=== PATIENT | male | born 1975 | race Caucasian/White ===

== ENCOUNTER 2017-03-25 13:04 | Emergency (ER) | payer BC ==
[2017-03-25 13:14] VITALS: BP 123/84
--- NOTE | 2017-03-25 16:15 | Emergency Department Report ---
[facility] Chief Complaint: Eye Problems Stated Complaint: LEFT EYE CYST Time Seen by Provider: 03/25/17 15:54 Duration: 7 months Side: Left (left eye brow cyst ) Severity: mild Symptoms: Yes Eye Itching, Yes Eye Redness, Yes Mucous Drainage, Yes Purulent Drainage, No Eye Pain, No Blurred Vision, No Preceding URI, No H/O Allergic Rhinitis, No Contact Lens Use, No Trauma, No Fever, No Headache ED Review of Systems ROS: Stated complaint: LEFT EYE CYST Other details as noted in HPI Constitutional: denies: chills, fever Eyes: eye discharge. denies: vision change ENT: denies: ear pain, throat pain Respiratory: denies: cough, shortness of breath, wheezing Cardiovascular: denies: chest pain, palpitations Endocrine: no symptoms reported Gastrointestinal: denies: abdominal pain, nausea, diarrhea Genitourinary: denies: urgency, dysuria Musculoskeletal: denies: back pain, joint swelling, arthralgia Skin: denies: rash, lesions Neurological: denies: headache, weakness, paresthesias Psychiatric: denies: anxiety, depression Hematological/Lymphatic: denies: easy bleeding, easy bruising ED Past Medical Hx - Past Medical History Previous Medical History?: No - Surgical History Past Surgical History?: No - Social History Smoking Status: Current Every Day Smoker Substance Use Type: Alcohol - Medications Home Medications: Home Medications Medication Instructions Recorded Confirmed Last Taken Type Amoxicillin/K Clav Tab [Augmentin 1 tab PO Q12HR #20 tab 03/25/17 Unknown Rx 875 mg] Ibuprofen [Motrin 800 MG tab] 800 mg PO Q8HR PRN #30 tablet 03/25/17 Unknown Rx Ofloxacin 1 drop OP Q3H #1 bottle 03/25/17 Unknown Rx Oxymetazoline 0.05% [Afrin] 1 spray NS BID #1 bottle 03/25/17 Unknown Rx [facility] Exam - Exam General: Vital signs noted. No distress. Alert and acting appropriately. Eye Exam: Left Mucous Discharge, Left Purulent Discharge, Both Injection, Both EOMI, Neither Chemosis, Neither Abnormal Pupil, Neither Eye Foreign Body, Neither Lid Foreign Body, Neither Photophobia HEENT: Yes Nasal Congestion (yellow /clear post nasal drip turbinate erythema mild bilat maxillary tenderness ), Yes Pharyngeal Erythema (no exudate no lesions no edema uvula midline no stridor ) Remainder of HEENT: Normal Lungs: Yes Clear Lung Sounds, Yes Good Air Exchange, Yes Cough (intermittent clear ), No Wheezes, No Stridor, No Nasal Flaring, No Retractions, No Use of Accessory Muscles ED Course Vital Signs 03/25/17 13:10 Temperature 99 F Pulse Rate 115 H Respiratory 18 Rate Blood Pressure 123/84 O2 Sat by Pulse 100 Oximetry ED Medical Decision Making - Medical Decision Making pt is a 41 y/o aam with hx seasonal allergies initially presented for left eyebrow cyst x 7 months with bilat purulent eye drainage x 2 weeks pt is perrla eomi conjunctivae erythema purulent drainage and itching no change in vision visual aquitty 20/13 left, 20/15 right, and 20/20 bilat there is no blurred vision eye lids inverted and swept bilat no foreign bodies no foreignbody sensation, secondary complaint head congestion, ENT: bilat TM erythema mild pain , nose: bilat turbinate erythema no yellow/clear boggy post nasal drip, pharynx: moderate erythema no exudate no lesions no swelling uvula midline no stridor, lungs clear bilat all lobes, cv: s1 and s2 no mrg, pt with mild tachycardia this visit, pt endorses no sleep working on 28 hrs , no food no drink , "Im tired for this cold" plan: NS x 1 liter, po given lunch tolerating same without n/v there is no headache no dizziness no lightheadeness no fever no chills, will treat for conjunctivitis, uri, pt will follow up with ophthalmology for follow up for conjunctivitis and primary care if cold symptoms not improving in next 3-4 days pt verbalized agreement and understanding of discharge plan. Critical care attestation.: If time is entered above; I have spent that time in minutes in the direct care of this critically ill patient, excluding procedure time. ED Disposition Clinical Impression: Conjunctivitis Qualifiers: Conjunctivitis type: acute Acute conjunctivitis type: bacterial Laterality: bilateral Qualified Code(s): H10.33 - Unspecified acute conjunctivitis, bilateral URI (upper respiratory infection) Qualifiers: URI type: acute nasopharyngitis (common cold) Qualified Code(s): J00 - Acute nasopharyngitis [common cold] Sinusitis Qualifiers: Sinusitis location: maxillary Chronicity: acute Recurrence: non-recurrent Qualified Code(s): J01.00 - Acute maxillary sinusitis, unspecified Disposition: - TO HOME OR SELFCARE Is pt being admited?: No Does the pt Need Aspirin: No Condition: Good Instructions: Conjunctivitis (ED), Sinusitis (ED) Additional Instructions: follow up with ophthalmology as directed [facility] , follow up with primary care doctor as directed Dr. Jenkins [phone] Prescriptions: Amoxicillin/K Clav Tab [Augmentin 875 mg] 1 tab PO Q12HR #20 tab Ibuprofen [Motrin 800 MG tab] 800 mg PO Q8HR PRN #30 tablet PRN Reason: pain / fever Ofloxacin 1 drop OP Q3H #1 bottle Oxymetazoline 0.05% [Afrin] 1 spray NS BID #1 bottle Referrals: PRIMARY CARE, [Primary Care Provider] - 3-5 Days KARLI JENKINS MD [Staff Physician] - 3-5 Days Forms: Work/School Release Form(ED) Time of Disposition: 16:46
[2017-03-25] MEDS ORDERED: MOTRIN PO ONE (16:16)
[2017-03-25] MEDS ORDERED: NACL 0.9% 1000 ML 1,000 ML IV ONE (16:16)
== END 2017-03-25 17:22 | disposition home or self-care (01) ==
LOC: ED 13:04
DX: H10.33 Unspecified acute conjunctivitis, bilateral (principal); J00 Acute nasopharyngitis [common cold]; J01.00 Acute maxillary sinusitis, unspecified; F17.200 Nicotine dependence, unspecified, uncomplicated
CPT/HCPCS: 96374; 99283; J7030

== ENCOUNTER 2017-04-01 16:23 | Emergency (ER) | payer BC ==
--- NOTE | 2017-04-01 20:49 | Emergency Department Report ---
ED Recheck HPI - General Chief Complaint: Eye Problems Stated Complaint: LEFT EYE CYST Time Seen by Provider: 04/01/17 20:17 Source: patient Mode of arrival: Ambulatory Limitations: No Limitations - History of Present Illness Initial Comments: This is a 41-year-old male nontoxic, well nourished in appearance, no acute signs of distress presents to the ED with a medical release to work. Patient stated he was here 7 days ago and was diagnosed with conjunctivitis and normal cyst to the left eyebrow region. Patient was referred to follow-up with the assistant professor of anthropology and was prescribed antibiotics by mouth and also Floxin by patient presents today with all the prescription and stated he had no time filling it. Patient is requesting a medical release from the ER from the back to work. Patient stated he tried last week to get medically cleared by the provider with the providers that he needs to follow-up with a assistant professor of anthropology the patient stated he did not times make an appointment or see one. Patient denies any trauma to the region. Denies any blurry vision, chest pain, shortness of breath, fever, chills, nausea or vomiting. Patient denies symptoms change from last visit. Patient denies any allergies or past medical history. MD Complaint: other (medical clearence) -: Gradual, days(s) (7) Returns Today for: other (medical clearence) Symptoms Since Prior Visit: no new symptoms Associated Symptoms: none. denies: fever, chills, chest pain, shortness of breath, rash, malaise, nasuea, abdominal pain - Related Data Previous Rx's Medication Instructions Recorded Last Taken Type Amoxicillin/K Clav Tab [Augmentin 1 tab PO Q12HR #20 tab 03/25/17 Unknown Rx 875 mg] Ibuprofen [Motrin 800 MG tab] 800 mg PO Q8HR PRN #30 tablet 03/25/17 Unknown Rx Ofloxacin 1 drop OP Q3H #1 bottle 03/25/17 Unknown Rx Oxymetazoline 0.05% [Afrin] 1 spray NS BID #1 bottle 03/25/17 Unknown Rx Allergies Allergy/AdvReac Type Severity Reaction Status Date / Time No Known Allergies Allergy Unverified 03/25/17 13:14 ED Review of Systems ROS: Stated complaint: LEFT EYE CYST Other details as noted in HPI Constitutional: denies: chills, fever Eyes: other (left eyebrow region nodular cyst). denies: eye pain, eye discharge , vision change ENT: denies: ear pain, throat pain Respiratory: denies: cough, shortness of breath, wheezing Cardiovascular: denies: chest pain, palpitations Endocrine: no symptoms reported Gastrointestinal: denies: abdominal pain, nausea, diarrhea Genitourinary: denies: urgency, dysuria Musculoskeletal: denies: back pain, joint swelling, arthralgia Skin: denies: rash, lesions Neurological: denies: headache, weakness, paresthesias Psychiatric: denies: anxiety, depression Hematological/Lymphatic: denies: easy bleeding, easy bruising ED Past Medical Hx - Past Medical History Previous Medical History?: No - Surgical History Past Surgical History?: No - Social History Smoking Status: Current Every Day Smoker Substance Use Type: Alcohol - Medications Home Medications: Home Medications Medication Instructions Recorded Confirmed Last Taken Type Amoxicillin/K Clav Tab [Augmentin 1 tab PO Q12HR #20 tab 03/25/17 Unknown Rx 875 mg] Ibuprofen [Motrin 800 MG tab] 800 mg PO Q8HR PRN #30 tablet 03/25/17 Unknown Rx Ofloxacin 1 drop OP Q3H #1 bottle 03/25/17 Unknown Rx Oxymetazoline 0.05% [Afrin] 1 spray NS BID #1 bottle 03/25/17 Unknown Rx ED Physical Exam - General Limitations: No Limitations General appearance: alert, in no apparent distress - Head Head exam: Present: atraumatic, normocephalic - Eye Eye exam: Present: normal appearance, PERRL, EOMI, other (left eyebrow region nodular cyst. No induratoin. No flutance. No abscess, pus, or driange. ). Absent: scleral icterus, conjunctival injection, nystagmus, periorbital swelling , periorbital tenderness Pupils: Present: normal accommodation - Expanded Eye Exam Expanded Eyelids: Normal Inspection: Left Pupils: Regular, Round: Left, Reactive: Left Sclera/Conjunctival: Normal Inspection: Left Visual acuity (R) = 20/: 40 Visual acuity (L) = 20/: 40 With correction: No - ENT ENT exam: Present: normal exam, normal orophraynx, mucous membranes moist, TM's normal bilaterally, normal external ear exam - Neck Neck exam: Present: normal inspection - Respiratory Respiratory exam: Present: normal lung sounds bilaterally. Absent: respiratory distress, wheezes, rales, rhonchi, stridor, chest wall tenderness, accessory muscle use, decreased breath sounds, prolonged expiratory - Cardiovascular Cardiovascular Exam: Present: regular rate, normal rhythm, normal heart sounds. Absent: systolic murmur, diastolic murmur, rubs, gallop - GI/Abdominal GI/Abdominal exam: Present: soft, normal bowel sounds. Absent: distended, tenderness, guarding, rebound, rigid, diminished bowel sounds - Rectal Rectal exam: Present: deferred - Extremities Exam Extremities exam: Present: normal inspection, full ROM, normal capillary refill. Absent: tenderness, pedal edema, joint swelling, calf tenderness - Back Exam Back exam: Present: normal inspection, full ROM. Absent: tenderness, CVA tenderness (R), CVA tenderness (L), muscle spasm, paraspinal tenderness, vertebral tenderness, rash noted - Neurological Exam Neurological exam: Present: alert, oriented X3, CN II-XII intact, normal gait, reflexes normal - Psychiatric Psychiatric exam: Present: normal affect, normal mood - Skin Skin exam: Present: warm, dry, intact, normal color. Absent: rash ED Course Vital Signs 04/01/17 04/01/17 16:46 21:04 Temperature 98.4 F 98.7 F Pulse Rate 107 H 104 H Respiratory 16 18 Rate Blood Pressure 93/64 Blood Pressure 113/75 [Right] O2 Sat by Pulse 97 100 Oximetry - Reevaluation(s) Reevaluation #1: 04/01/17 21:21 Patient is speaking in full sentences with no signs of distress noted. Reevaluation #2: 04/01/17 21:21 Patient was instructed but his heart rate and a leg start normal saline to decrease his heart rate into the further evaluation the patient's that he wanted to leave AMA. I instructed the patient of my concerns about his elevated heart rate by patient stated he has to leave because his daughter. Patient sign AMA form. Critical care attestation.: If time is entered above; I have spent that time in minutes in the direct care of this critically ill patient, excluding procedure time. ED Disposition Clinical Impression: Wellness examination Disposition: DC-07 LEFT AGAINST MED ADVICE Is pt being admited?: No Does the pt Need Aspirin: No Condition: Stable Additional Instructions: Please follow-up with your primary care doctor for her year increased heart rate and please continue taking appropriate antibiotic that was prescribed and follow up with a assistant professor of anthropology as directed. Referrals: [facility] [Outside] - 3-5 Days PRIMARY CAREMD [Primary Care Provider] - 24 Hours BRENDA SAENZ MD [Staff Physician] - 24 Hours NAI RAE MD [Staff Physician] - 24 Hours Forms: Work/School Release Form(ED)
[2017-04-01 21:05] VITALS: BP 113/75
== END 2017-04-01 21:30 | disposition left against medical advice (07) ==
LOC: ED 16:23
DX: H57.8 Other specified disorders of eye and adnexa (principal); F17.200 Nicotine dependence, unspecified, uncomplicated
CPT/HCPCS: 99282

== ENCOUNTER 2017-05-18 10:08 | Emergency (ER) | payer BC ==
[2017-05-18 10:14] VITALS: BP 145/100
[2017-05-18] MEDS ORDERED: MOTRIN PO ONE (11:56)
[2017-05-18] MEDS ORDERED: LIDOCAINE VISCOUS 2% PO ONE (11:56)
--- NOTE | 2017-05-18 11:56 | Emergency Department Report ---
Abscess Boil HPI - HPI Chief Complaint: Skin/Abscess/Foreign Body Stated Complaint: CYST Time Seen by Provider: 05/18/17 11:29 Duration: >1 Week (2 months) Location: Other (left face) Severity: Severe (3 out of 10 and throbbing) History: Yes Pain (left facial abscess), Yes Purulent Drainage, Yes Previous History, No Fever, No Numbness, No Foreign Body, No Insect Bite HPI: Patient he reports that he is assist to his left facial area beside his eyebrow. He said he was here in March and was treated with antibiotic but the abscess didn't go away. Patient said he woke up this morning and it was draining. Documentation revealed the patient was here and was treated for infection and also conjunctivitis on 03/25/2017. Patient denies any visual difficulties. He reports pain is 3 out of 10 and throbbing. Pain is worse with palpation and he said he did not take any medication. Tetanus vaccine is not up-to-date. Patient does not know of any injury or insect bite. Patient said that he did not follow up. He also said he doesn't have a primary care physician because there is nothing wrong with him. Patient blood pressure is 145/100 and he said he does not have any history of high blood pressure. Denies any headache, dizziness, nausea vomiting or visual defect. Home Medications: Previous Rx's Medication Instructions Recorded Last Taken Type Amoxicillin/K Clav Tab [Augmentin 1 tab PO Q12HR #20 tab 03/25/17 Unknown Rx 875 mg] Ibuprofen [Motrin 800 MG tab] 800 mg PO Q8HR PRN #30 tablet 03/25/17 Unknown Rx Ofloxacin 1 drop OP Q3H #1 bottle 03/25/17 Unknown Rx Oxymetazoline 0.05% [Afrin] 1 spray NS BID #1 bottle 03/25/17 Unknown Rx Cephalexin [Keflex] 500 mg PO Q8HR #30 cap 05/18/17 Unknown Rx Ibuprofen [Motrin] 600 mg PO Q8H PRN #12 tablet 05/18/17 Unknown Rx Allergies/Adverse Reactions: Allergies Allergy/AdvReac Type Severity Reaction Status Date / Time No Known Allergies Allergy Unverified 03/25/17 13:14 ED Review of Systems ROS: Stated complaint: CYST Other details as noted in HPI Comment: All other systems reviewed and negative Constitutional: no symptoms reported Respiratory: no symptoms reported Cardiovascular: denies: chest pain, palpitations, dyspnea on exertion, edema, syncope, paroxysmal nocturnal dyspnea Gastrointestinal: denies: abdominal pain, nausea, vomiting Musculoskeletal: denies: back pain, joint swelling, arthralgia, myalgia Skin: other (painful this the facial area with drainage). denies: rash Neurological: denies: headache, weakness, numbness, paresthesias, confusion, abnormal gait, vertigo ED Past Medical Hx - Past Medical History Previous Medical History?: No - Surgical History Past Surgical History?: No - Family History Family history: no significant - Social History Smoking Status: Current Every Day Smoker Substance Use Type: Alcohol - Medications Home Medications: Home Medications Medication Instructions Recorded Confirmed Last Taken Type Amoxicillin/K Clav Tab [Augmentin 1 tab PO Q12HR #20 tab 03/25/17 Unknown Rx 875 mg] Ibuprofen [Motrin 800 MG tab] 800 mg PO Q8HR PRN #30 tablet 03/25/17 Unknown Rx Ofloxacin 1 drop OP Q3H #1 bottle 03/25/17 Unknown Rx Oxymetazoline 0.05% [Afrin] 1 spray NS BID #1 bottle 03/25/17 Unknown Rx Cephalexin [Keflex] 500 mg PO Q8HR #30 cap 05/18/17 Unknown Rx Ibuprofen [Motrin] 600 mg PO Q8H PRN #12 tablet 05/18/17 Unknown Rx ED Abscess Boil Physical Exam - Exam General: Vital signs noted. No distress. Alert and acting appropriately. This is a 41-year-old male well-nourished well-developed in no acute distress. Front/Back of Body, Lg (Color): 1 - Left facial swelling, positive induration, positive fluctuant purulence, positive erythema with swelling extending below left eye. Tender to palpate but no drainage noted. Located left lateral face beside eyebrow. This vaccine is not up-to-date. Size: 1 cm (Dime size) Exam: Yes Tenderness (abscess to left facial area), Yes Fluctuance (facial area) , Yes Surrounding Cellulites/Erythema (left facial area), Yes Normal Neurologic Exam, Yes Normal Circulation, No Lymphangitis, No Crepitation, No Heart Murmur Exam: Lungs: Auscultated bilaterally, no rhonchi wheezes or rales. Normal work of breathing. Mouth: Moist, uvula midline, no pharyngeal erythema or exudate. Tongue is normal. Eyes: Bilateral pupils equal and reactive to light, bilateral EOM intact, no nystagmus, bilateral sclera and conjunctiva non- icterus and not injected. See documentation for visual acuity check. Right eye 20/20 both eyes, left eye 20/40 and right eye 20/40. Extremity: No clubbing , cyanosis or edema. +2 pulses to all extremities. No neurovascular compromise. Psych: Normal mood and behavior I & D Note - I & D Note I & D Note: Incision and drainage note: Patient with simple abscess to left facial area beside eyebrow. Abscesses 1 cm, indurated and fluctuant with cellulitis surrounding the area. Area is tender to palpate. Incision and drainage under sterile procedure. Patient had topical lidocaine placed the site for greater than 15 minutes, 15-gauge needle used to make small open and and approximately 0.5 mL of thick pus mixed with small amount of blood expressed from site. Prior to procedure area cleansed with iodine and normal saline. Post procedure area cleansed with normal saline and sterile dry dressing placement site. Patient tolerated procedure well. He received tetanus vaccine. ED Course Vital Signs 05/18/17 10:12 Temperature 98.9 F Pulse Rate 108 H Respiratory 16 Rate Blood Pressure 145/100 O2 Sat by Pulse 99 Oximetry Vital Signs 05/18/17 05/18/17 10:12 14:50 Temperature 98.9 F Pulse Rate 108 H 98 H Respiratory 16 Rate Blood Pressure 145/100 O2 Sat by Pulse 99 Oximetry - Reevaluation(s) Reevaluation #1: 05/18/17 14:58 Patient did not want any pain medication for pain. He had uneventful ED course Critical care attestation.: If time is entered above; I have spent that time in minutes in the direct care of this critically ill patient, excluding procedure time. ED Medical Decision Making - Medical Decision Making ED course: Pt here complaining of cystoscopy left facial area that's been ongoing since March 2017. He was here in March and was treated with antibiotic but patient said he got up this morning and the cyst was drainage to his face. Physical findings for simple abscess with cellulitis which was incision and drained under sterile procedure. Patient received Boostrix 0.5 mL to update tetanus. He did not follow-up as instructed. Patient does have insurance and I explained to him that his blood pressure is elevated and he is going to need to take his blood pressure daily and keep a log and schedule appointment with his [facility] for initial physical exam and evaluation of blood pressure readings. I also discussed the patient that he will need to follow up with guide rail cleaner regarding in abscess to left facial area. I told him he'll need to follow up in 2-3 days. Patient voiced understanding of need to follow up with primary care and also with guide rail cleaner. Patient discharged home with prescription for Keflex and Motrin. ED Disposition Clinical Impression: Cellulitis and abscess of face, Encounter for incision and drainage procedure Disposition: TO HOME OR SELFCARE Is pt being admited?: No Does the pt Need Aspirin: No Condition: Stable Instructions: Abscess Incision and Drainage (ED), Cellulitis (ED), Acute Wound Care (ED) Additional Instructions: Take antibiotic as prescribed s Follow-up with your primary care physician in 2-3 days post incision and drainage of facial abscess and also for primary care visit. Keep affected area clean and dry. Followed discharge instruction on acute wound care . Please return to emergency room if you develop increasing redness, streaking, fever, difficulty moving in and the left forearm and increase in pain . Your blood pressure was elevated today so you will need to keep a log a few blood pressure and call's outside Medical Center to schedule an appointment for physical exam and evaluation of blood pressure. Prescriptions: Cephalexin [Keflex] 500 mg PO Q8HR #30 cap Ibuprofen [Motrin] 600 mg PO Q8H PRN #12 tablet PRN Reason: Pain [facility] - [facility]3 Days NANCY RUTH MD [Staff Physician] - 2-3 Days return to, Emergency room [Other] - 05/21/17 Forms: Work/School Release Form(ED)
[2017-05-18] MEDS ORDERED: BOOSTRIX IM ONE (11:58)
[2017-05-18] MEDS ORDERED: PERCOCET 5/325 PO ONE (13:46)
== END 2017-05-18 15:17 | disposition home or self-care (01) ==
LOC: ED 10:08
DX: L02.01 Cutaneous abscess of face (principal); F17.200 Nicotine dependence, unspecified, uncomplicated; L03.211 Cellulitis of face
CPT/HCPCS: 90471; 90715

== ENCOUNTER 2018-09-07 16:53 | Emergency (ER) | payer BC, OTHER ==
--- NOTE | 2018-09-07 17:13 | Emergency Department Report ---
Blank Doc - Documentation Documentation: This is a 43-year-old male that presents with bilateral upper eyelid swelling. Patient stated had an I/D done last year for this and symptoms came back. This initial assessment/diagnostic orders/clinical plan/treatment(s) is/are subject to change based on patient's health status, clinical progression and re- assessment by fellow clinical providers in the ED. Further treatment and workup at subsequent clinical providers discretion. Patient/guardians urged not to elope from the ED as their condition may be serious if not clinically assessed and managed. Initial orders include: 1- Patient sent to [facility] for further evaluation and treatment
[2018-09-07 17:14] VITALS: BP 136/89
--- NOTE | 2018-09-07 19:55 | Emergency Department Report ---
ED Eye Problem HPI - General Chief complaint: Eye Problems Stated complaint: CYST Time Seen by Provider: 09/07/18 17:11 Source: patient Mode of arrival: Ambulatory Limitations: No Limitations - History of Present Illness Initial comments: 43-year-old -[place] male presents to the emergency room for bilateral cysts above both eyes. Patient reports that right cysts is mildly painful. Patient reports he has watery eyes but this is chronic area patient denies any fever chills no nausea no vomiting. Patient denies any change of vision. He does admit to chronic crusty eyelashes. -: days(s) (3) Location: both eyes If Injury: none Eye Symptoms: other (watery eyes) Severity: mild Severity scale (0 -10): 0 Treatments Prior to Arrival: none - Related Data Previous Rx's Medication Instructions Recorded Last Taken Type Amoxicillin/K Clav Tab [Augmentin 1 tab PO Q12HR #20 tab 03/25/17 Unknown Rx 875 mg] Ibuprofen [Motrin 800 MG tab] 800 mg PO Q8HR PRN #30 tablet 03/25/17 Unknown Rx Ofloxacin 1 drop OP Q3H #1 bottle 03/25/17 Unknown Rx Oxymetazoline 0.05% [Afrin] 1 spray NS BID #1 bottle 03/25/17 Unknown Rx Ibuprofen [Motrin] 600 mg PO Q8H PRN #12 tablet 05/18/17 Unknown Rx cephALEXin [Keflex] 500 mg PO Q8HR #30 cap 05/18/17 Unknown Rx Allergies Allergy/AdvReac Type Severity Reaction Status Date / Time No Known Allergies Allergy Unverified 03/25/17 13:14 ED Review of Systems ROS: Stated complaint: CYST Other details as noted in HPI Comment: All other systems reviewed and negative ED Past Medical Hx - Past Medical History Previous Medical History?: No - Surgical History Past Surgical History?: No - Social History Smoking Status: Current Every Day Smoker Substance Use Type: Alcohol - Medications Home Medications: Home Medications Medication Instructions Recorded Confirmed Last Taken Type Amoxicillin/K Clav Tab [Augmentin 1 tab PO Q12HR #20 tab 03/25/17 Unknown Rx 875 mg] Ibuprofen [Motrin 800 MG tab] 800 mg PO Q8HR PRN #30 tablet 03/25/17 Unknown Rx Ofloxacin 1 drop OP Q3H #1 bottle 03/25/17 Unknown Rx Oxymetazoline 0.05% [Afrin] 1 spray NS BID #1 bottle 03/25/17 Unknown Rx Ibuprofen [Motrin] 600 mg PO Q8H PRN #12 tablet 05/18/17 Unknown Rx cephALEXin [Keflex] 500 mg PO Q8HR #30 cap 05/18/17 Unknown Rx ED Physical Exam - General Limitations: No Limitations General appearance: alert, in no apparent distress - Head Head exam: Present: atraumatic, normocephalic - Eye Eye exam: Present: PERRL, EOMI - ENT ENT exam: Present: mucous membranes moist - Neurological Exam Neurological exam: Present: alert, oriented X3 - Psychiatric Psychiatric exam: Present: normal affect, normal mood - Skin Skin exam: Present: warm, dry, intact, normal color. Absent: rash ED Course Vital Signs 09/07/18 17:12 Temperature 98 F Pulse Rate 100 H Respiratory 20 Rate Blood Pressure 136/89 O2 Sat by Pulse 97 Oximetry ED Medical Decision Making - Medical Decision Making Patient has been evaluated by this provider in fast track. Patient appears to have bilateral epidermal cyst above her eyes. I recommended patient follow-up with an change over and/or a machine heel seat laster. I will list information below for his convenience. Critical care attestation.: If time is entered above; I have spent that time in minutes in the direct care of this critically ill patient, excluding procedure time. ED Disposition Clinical Impression: Epidermal cyst of ear Disposition: DC-01 TO HOME OR SELFCARE Is pt being admited?: No Does the pt Need Aspirin: No Condition: Stable Additional Instructions: Please follow up with machine heel seat laster or change over I have listed her information below for your convenience. Referrals: JC MORRISON MD [Primary Care Provider] - 3-5 Days [facility] [Provider Group] - 3-5 Days [facility] [Provider Group] - 3-5 Days BRENDA SAENZ MD [Staff Physician] - 3-5 Days SYLVIE FIGUEROA MD [Staff Physician] - 3-5 Days Forms: Work/School Release Form(ED)
== END 2018-09-07 20:02 | disposition home or self-care (01) ==
LOC: ED 16:53
DX: L72.0 Epidermal cyst (principal); F17.200 Nicotine dependence, unspecified, uncomplicated
CPT/HCPCS: 99282

== ENCOUNTER 2018-12-16 17:18 | Inpatient (IN) | payer OTHER ==
[2018-12-16] MEDS ORDERED: BABY ASPIRIN PO ONE (17:23)
--- NOTE | 2018-12-16 17:23 | Event Note ---
ED Screening Note ED Screening Note: cp started 30 m vessel captain mid sternal rad to arm diaphoretic stemi on 12 lead cig This initial assessment/diagnostic orders/clinical plan/treatment(s) is/are subject to change based on patients health status, clinical progression and re- assessment by fellow clinical providers in the ED. Further treatment and workup at subsequent clinical providers discretion. Patient/guardian urged not to elope from the ED as their condition may be serious if not clinically assessed and managed. Initial orders include: stemi alert asa to main
[2018-12-16] MEDS: HEPARIN 10,000 UNITS/10 ML IV ONE (17:30)
[2018-12-16] MEDS ORDERED: NACL 0.9% 1000 ML 1,000 ML ONE (17:41)
--- NOTE | 2018-12-16 17:43 | Emergency Department Report ---
ED Chest Pain HPI - General Chief Complaint: Chest Pain Stated Complaint: ARM PAIN/CHEST PAIN Time Seen by Provider: 12/16/18 17:23 Source: patient, family Mode of arrival: Ambulatory Limitations: No Limitations - History of Present Illness Initial Comments: 43-year-old male with no past medical history presents to the ED with complaint of chest pain, substernal, onset 30 minutes ago, onset at rest. Patient reported his pain is sharp, and denies shortness of breath, nausea, vomiting. Patient reports tobacco use, denies illicit drug use. MD Complaint: chest pain -: minutes(s) (30) Onset: during rest Pain Location: substernal Pain Radiation: RUE Severity: severe Severity scale (0 -10): 10 Quality: sharp Consistency: constant Improves With: nothing Worsens With: nothing re: denies: nausea, vomting, dyspnea Treatments Prior to Arrival: none - Related Data Previous Rx's Medication Instructions Recorded Last Taken Type Amoxicillin/K Clav Tab [Augmentin 1 tab PO Q12HR #20 tab 03/25/17 Unknown Rx 875 mg] Ibuprofen [Motrin 800 MG tab] 800 mg PO Q8HR PRN #30 tablet 03/25/17 Unknown Rx Ofloxacin [Ofloxacin 0.3%] 1 drop OP Q3H #1 bottle 03/25/17 Unknown Rx Oxymetazoline 0.05% [Afrin] 1 spray NS BID #1 bottle 03/25/17 Unknown Rx Ibuprofen [Motrin] 600 mg PO Q8H PRN #12 tablet 05/18/17 Unknown Rx cephALEXin [Keflex] 500 mg PO Q8HR #30 cap 05/18/17 Unknown Rx Allergies Allergy/AdvReac Type Severity Reaction Status Date / Time No Known Allergies Allergy Verified 12/16/18 17:26 Heart Score - HEART Score History: Highly suspicious EKG: Significant ST-depression Age: < 45 Risk factors: 1-2 risk factors Troponin: < normal limit HEART Score: 5 ED Review of Systems ROS: Stated complaint: ARM PAIN/CHEST PAIN Other details as noted in HPI Comment: All other systems reviewed and negative Respiratory: denies: shortness of breath Cardiovascular: chest pain Gastrointestinal: denies: nausea, vomiting ED Past Medical Hx - Past Medical History Previous Medical History?: No - Surgical History Past Surgical History?: No - Social History Smoking Status: Never Smoker - Medications Home Medications: Home Medications Medication Instructions Recorded Confirmed Last Taken Type Amoxicillin/K Clav Tab [Augmentin 1 tab PO Q12HR #20 tab 03/25/17 Unknown Rx 875 mg] Ibuprofen [Motrin 800 MG tab] 800 mg PO Q8HR PRN #30 tablet 03/25/17 Unknown Rx Ofloxacin [Ofloxacin 0.3%] 1 drop OP Q3H #1 bottle 03/25/17 Unknown Rx Oxymetazoline 0.05% [Afrin] 1 spray NS BID #1 bottle 03/25/17 Unknown Rx Ibuprofen [Motrin] 600 mg PO Q8H PRN #12 tablet 05/18/17 Unknown Rx cephALEXin [Keflex] 500 mg PO Q8HR #30 cap 05/18/17 Unknown Rx ED Physical Exam - General Limitations: No Limitations General appearance: alert - Head Head exam: Present: atraumatic, normocephalic - Eye Eye exam: Present: normal appearance - ENT ENT exam: Present: mucous membranes moist - Neck Neck exam: Present: normal inspection - Respiratory Respiratory exam: Present: normal lung sounds bilaterally. Absent: respiratory distress - Cardiovascular Cardiovascular Exam: Present: regular rate, normal rhythm - GI/Abdominal GI/Abdominal exam: Present: soft. Absent: distended, tenderness - Extremities Exam Extremities exam: Present: normal inspection - Neurological Exam Neurological exam: Present: alert, oriented X3, CN II-XII intact. Absent: motor sensory deficit - Psychiatric Psychiatric exam: Present: normal affect, normal mood - Skin Skin exam: Present: warm, dry, intact, normal color. Absent: rash ED Course Vital Signs 12/16/18 17:30 Temperature 98.9 F Pulse Rate 93 H Respiratory 17 Rate Blood Pressure 118/92 O2 Sat by Pulse 100 Oximetry - Consultations Consultation #1: 12/16/18 17:[address] Kruger. EKG reviewed. seed analysis laboratory assistant team contacted. ED Medical Decision Making - Lab Data Result diagrams: 12/16/18 17:41 12/16/18 17:41 - EKG Data -: EKG Interpreted by Me - EKG Data Interpretation: acute OR, other (inferior/posterior STEMI w/ ST skip in II, III, aVF, depressions in all other leads) - Radiology Data Radiology results: image reviewed - Medical Decision Making 43-year-old male with onset of chest pain approximately 30 minutes prior to arrival. Patient uncomfortable, diaphoretic. EKG shows STEMI with ST elevation in II, III, aVF and reciprocal depressions. Patient given aspirin, Plavix, heparin bolus. discharge door operator contacted, patient sent to refuse laborer for cardiac cath. - Differential Diagnosis STEMI Critical Care Time: Yes Critical care time in (mins) excluding proc time.: 35 Critical care attestation.: If time is entered above; I have spent that time in minutes in the direct care of this critically ill patient, excluding procedure time. Critical Care Time: 35 minutes ED Disposition Clinical Impression: STEMI (ST elevation myocardial infarction) Qualifiers: Involved coronary artery: right coronary artery Qualified Code(s): I21.11 - ST elevation (STEMI) myocardial infarction involving right coronary artery Disposition: DC-09 OP ADMIT IP TO THIS HOSP Is pt being admited?: Yes Condition: Stable Time of Disposition: 17:45
[2018-12-16 17:50] LABS: Basophils # (Auto) 0.1 K/mm3 (0.0-0.1); Eosinophils # (Auto) 0.1 K/mm3 (0.0-0.4); Eosinophils % (Auto) 0.5 % (0.0-4.3); Hematocrit 41.6 % (35.5-45.6); Hemoglobin 14.1 gm/dl (11.8-15.2); Lymphocytes # (Auto) 3.4 K/mm3 (1.2-5.4); Lymphocytes % (Auto) 29.5 % (13.4-35.0); Mean Corpuscular HGB Conc 34 % (32-34); Mean Corpuscular Volume 90 fl (84-94); Monocytes # (Auto) 0.8 K/mm3 (0.0-0.8); Monocytes % (Auto) 7.2 % (0.0-7.3); Platelet Count 299 K/mm3 (140-440); Red Blood Count 4.64 M/mm3 (3.65-5.03); Red Cell Distribution Width 15.7 % (13.2-15.2)
[2018-12-16] MEDS ORDERED: PLAVIX PO ONE (17:50)
[2018-12-16] MEDS ORDERED: NACL 0.9% 1000 ML 1,000 ML IV ONE (17:51)
[2018-12-16] MEDS ORDERED: SODIUM CHLORIDE FLUSH SYRINGE 10 ML IV PRN (17:52)
[2018-12-16 17:57] LABS: Bilirubin,Urine NEG (Negative); Blood,Urine NEG (Negative); Color,Urine Yellow (Yellow); Protein,Urine <15 mg/dL mg/dL (Negative); Urobilinogen,Urine < 2.0 mg/dL (<2.0)
[2018-12-16 17:58] LABS: INR 1.02 (0.87-1.13)
--- NOTE | 2018-12-16 18:02 | History and Physical Report ---
History of Present Illness Chief complaint: My chest hurts History of present illness: 43 YO Male with Nicotine Dependence presents to ED for evaluation. Pt states that he has experienced acute onset of pain in his chest while driving to work. Pt states that his pain is 10/10, Substernal, radiates to the Right arm, co nstant, not worsened with exertion, not relieved with rest. Pt transported to [facility] via private vehicle. Pt seen and evaluated in ED and found to have EKG changes consistent STEMI. Cardiology team consulted in ED. Pt taken urgently to photographic laboratory technician for intervention, and admitted to ICU. NO report of fever, chills, palpitations, NVD, trauma, falls, unilateral leg swelling, calf pain, syncope, productive cough, hemoptysis, prolonged travel/immobility, individual/family history of DVT/PE/Blood Clotting Disorders. NO prior admission for review. No medication listed for reconciliation at time of admission. Past History Past Medical History: other (Nicotine Dependence) Past Surgical History: No surgical history, Other (reviewed) Social history: single, smoking Family history: hypertension Medications and Allergies Allergies Allergy/AdvReac Type Severity Reaction Status Date / Time No Known Allergies Allergy Verified 12/16/18 17:26 Home Medications Medication Instructions Recorded Confirmed Last Taken Type Amoxicillin/K Clav Tab [Augmentin 1 tab PO Q12HR #20 tab 03/25/17 Unknown Rx 875 mg] Ibuprofen [Motrin 800 MG tab] 800 mg PO Q8HR PRN #30 tablet 03/25/17 Unknown Rx Ofloxacin [Ofloxacin 0.3%] 1 drop OP Q3H #1 bottle 03/25/17 Unknown Rx Oxymetazoline 0.05% [Afrin] 1 spray NS BID #1 bottle 03/25/17 Unknown Rx Ibuprofen [Motrin] 600 mg PO Q8H PRN #12 tablet 05/18/17 Unknown Rx cephALEXin [Keflex] 500 mg PO Q8HR #30 cap 05/18/17 Unknown Rx Active Meds: Active Medications Heparin Sodium (Porcine) (Heparin 10,000 Units/10 Ml) 4,000 unit IV ONCE ONE Stop: 12/16/18 18:52 Sodium Chloride (Nacl 0.9% 1000 Ml) 1,000 mls @ 999 mls/hr IV BOLUS ONE Stop: 12/16/18 18:51 Sodium Chloride (Sodium Chloride Flush Syringe 10 Ml) 10 ml IV BID YOVANA Sodium Chloride (Sodium Chloride Flush Syringe 10 Ml) 10 ml IV PRN PRN PRN Reason: LINE FLUSH Review of Systems Constitutional: no weight loss, no weight gain, no fever, no chills Ears, nose, mouth and throat: no ear pain, no ear discharge, no tinnitis, no nose pain, no nasal congestion Cardiovascular: chest pain, no palpitations, no rapid/irregular heart beat, no syncope, no lightheadedness, no paroxysmal nocturnal dyspnea Respiratory: no cough, no cough with sputum, no excessive sputum, no hemoptysis Gastrointestinal: no abdominal pain, no nausea, no vomiting, no constipation Genitourinary Male: no hematuria, no flank pain, no urinary frequency, no urinary hesitancy, no nocturia Rectal: no pain, no incontinence, no bleeding Musculoskeletal: no neck stiffness, no neck pain, no shooting arm pain, no arm numbness/tingling, no low back pain, no shooting leg pain Integumentary: no rash, no pruritis, no redness, no sores, no wounds Neurological: no head injury, no transient paralysis, no paralysis, no weakness, no parathesias, no numbness Psychiatric: no anxiety, no memory loss, no change in sleep habits, no sleep disturbances, no insomnia, no hypersomnia Endocrine: no cold intolerance, no heat intolerance, no polyphagia, no excessive thirst, no polydipsia, no polyuria Hematologic/Lymphatic: no easy bruising, no easy bleeding, no lymphadenopathy, no lymphedema Allergic/Immunologic: no urticaria, no allergic rhinitis, no wheezing, no persistent infections Exam - Constitutional Vitals: Temp Pulse Resp BP Pulse Ox 98.9 F 93 H 17 118/92 100 12/16/18 17:30 12/16/18 17:30 12/16/18 17:30 12/16/18 17:30 12/16/18 17:30 General appearance: Present: severe distress - EENT Eyes: Present: PERRL ENT: hearing intact, clear oral mucosa - Neck Neck: Present: supple, normal ROM - Respiratory Respiratory effort: normal Respiratory: bilateral: CTA - Cardiovascular Heart Sounds: Present: S1 & S2. Absent: rub, click - Extremities Extremities: pulses symmetrical, No edema Peripheral Pulses: within normal limits - Abdominal General gastrointestinal: Present: soft, non-tender, non-distended, normal bowel sounds Male genitourinary: Present: normal - Integumentary Integumentary: Present: clear, warm, dry - Musculoskeletal Musculoskeletal: gait normal, strength equal bilaterally - Psychiatric Psychiatric: appropriate mood/affect, intact judgment & insight - Neurologic Neurologic: CNII-XII intact, moves all extremities Results - Labs CBC & Chem 7: 12/16/18 17:41 12/16/18 17:41 Labs: Abnormal lab results 12/16/18 Range/Units 17:41 WBC 11.5 H (4.5-11.0) K/mm3 RDW 15.7 H (13.2-15.2) % Assessment and Plan - Patient Problems (1) STEMI (ST elevation myocardial infarction) Current Visit: No Status: Acute Qualifiers: Involved coronary artery: right coronary artery Qualified Code(s): I21.11 - ST elevation (STEMI) myocardial infarction involving right coronary artery Plan to address problem: Cardiology consulted in ED, Pt taken urgently to lab systems analyst, DAPT, supportive therapy, lipid panel, risk factor reduction. (2) Nicotine dependence Current Visit: Yes Status: Acute Qualifiers: Nicotine product type: cigarettes Plan to address problem: Smoking cessation counseling, supportive care. (3) Acute diastolic CHF (congestive heart failure) Current Visit: Yes Status: Acute Plan to address problem: Cardiology consulted in ED, Afterload reduction, strict I/O, daily weight, m onitor uop q shift, blood pressure control, supplemental oxygen, (4) DVT prophylaxis Current Visit: Yes Status: Acute Plan to address problem: SCD to BLE while in bed,
[2018-12-16 18:03] LABS: Partial Thromboplastin Time 166.4 Sec. (24.2-36.6)
[2018-12-16] MEDS ORDERED: HEPARIN 10,000 UNITS/10 ML ONE ×2 (18:04→18:08)
[2018-12-16] MEDS ORDERED: VERSED ONE (18:04)
[2018-12-16] MEDS ORDERED: HEPARIN/NS 5000 UNIT/500ML(CATH LAB) 1,000 ML IR ONE (18:04)
[2018-12-16] MEDS ORDERED: SUBLIMAZE ONE (18:04)
[2018-12-16] MEDS ORDERED: XYLOCAINE 2% INFILTRATI ONE (18:05)
[2018-12-16] MEDS ORDERED: NITROGLYCERIN SYRINGE 3 ML ONE (18:05)
[2018-12-16] MEDS ORDERED: CALAN ONE (18:05)
[2018-12-16 18:09] LABS: Amphetamine Screen,Urine PRESUMPTIVE NEGATIVE; Benzodiazepines Screen,Urine PRESUMPTIVE NEGATIVE; Cannabinoid Screen,Urine PRESUMPTIVE NEGATIVE; Cocaine Screen,Urine PRESUMPTIVE NEGATIVE; Methadone Screen,Urine PRESUMPTIVE NEGATIVE; Opiate Screen,Urine PRESUMPTIVE NEGATIVE
[2018-12-16 18:13] LABS: Alanine Aminotransferase 14 units/L (7-56); Albumin 3.9 g/dL (3.9-5); BUN/Creatinine Ratio 9; Blood Urea Nitrogen 10 mg/dL (9-20); Calcium 8.8 mg/dL (8.4-10.2); Hemolysis Index 16
[2018-12-16] MEDS ORDERED: NEO SYNEPHRINE IV ONE ×2 (18:18)
[2018-12-16] MEDS ORDERED: XYLOCAINE CARDIAC IV ONE (18:20)
[2018-12-16] MEDS ORDERED: ADRENALIN ONE (18:20)
[2018-12-16] MEDS ORDERED: ATROPINE 0.1% (CARDIAC) ONE (18:21)
[2018-12-16] MEDS ORDERED: NEO SYNEPHRINE/NS Syringe(OR USE) IV ONE (18:26)
--- NOTE | 2018-12-16 18:31 | XRay Report ---
PROCEDURE: XR CHEST 1V AP TECHNIQUE: Chest radiograph single view. HISTORY: Chest Pain COMPARISONS: None . FINDINGS: Heart: Normal. Mediastinum/Vessels: Normal. Lungs/Pleural space: Normal. Bony thorax: No acute osseous abnormality. Life support devices: None. IMPRESSION: No acute cardiopulmonary abnormality. This document is electronically signed by Shin Bryant MD., December 16 2018 06:29:58 PM ET
[2018-12-16] MEDS ORDERED: AMBIEN PO PRN (18:48)
[2018-12-16] MEDS ORDERED: ZOFRAN IV PRN (18:48)
[2018-12-16] MEDS ORDERED: ULTRAM PO PRN (18:48)
[2018-12-16] MEDS ORDERED: NORCO 5/325 PO PRN (18:48)
--- NOTE | 2018-12-16 18:57 | Consultation ---
History of Present Illness Consult date: 12/16/18 Requesting physician: DOV CABRALES Consult reason: chest pain History of present illness: 43-year-old male with history of smoking was driving to work at acute midsternal chest pressure with nausea and no vomiting mild diaphoresis was brought in by his aunt has not had similar pain in the past did not pass out EKG revealed acute inferior posterior wall TN. Patient was emergently taken to the cardiac Parachute Inspector and cardiac cath revealed left main patent LAD patent with mild luminal Kerekes circumflex patent ramus small patent RCA mid 99% mild inferior posterior wall hypokinesis patient had successful PCI of the mid RCA with a drug-eluting resolute on a 4.0 x 26 mm. Patient was chest pain-free at the case. Was done by the right radial artery. Patient denies any similar type pain in the past denies any drug use denies any fever or denies any syncope or palpitations. Denies drug abuse cocaine and heroin denies Past History Past Medical History: denies: No medical history Past Surgical History: denies: No surgical history Social history: smoking Family history: denies: no significant family history Medications and Allergies Allergies Allergy/AdvReac Type Severity Reaction Status Date / Time No Known Allergies Allergy Verified 12/16/18 17:26 Home Medications Medication Instructions Recorded Confirmed Last Taken Type Amoxicillin/K Clav Tab [Augmentin 1 tab PO Q12HR #20 tab 03/25/17 Unknown Rx 875 mg] Ibuprofen [Motrin 800 MG tab] 800 mg PO Q8HR PRN #30 tablet 03/25/17 Unknown Rx Ofloxacin [Ofloxacin 0.3%] 1 drop OP Q3H #1 bottle 03/25/17 Unknown Rx Oxymetazoline 0.05% [Afrin] 1 spray NS BID #1 bottle 03/25/17 Unknown Rx Ibuprofen [Motrin] 600 mg PO Q8H PRN #12 tablet 05/18/17 Unknown Rx cephALEXin [Keflex] 500 mg PO Q8HR #30 cap 05/18/17 Unknown Rx Active Meds: Active Medications Acetaminophen/Hydrocodone Bitart ([place] 5/325) 1 each PO Q6H PRN PRN Reason: Pain, Moderate (4-6) Aspirin (Baby Aspirin) 81 mg PO QDAY YOVANA Atorvastatin Calcium (Lipitor) 80 mg PO QHS YOVANA Clopidogrel Bisulfate (Plavix) 75 mg PO QDAY YOVANA Sodium Chloride (Nacl 0.45% 1000 Ml) 1,000 mls @ 100 mls/hr IV DIRECT YOVANA Ondansetron HCl (Zofran) 4 mg IV Q8H PRN PRN Reason: N/V unrelieved by Reglan Sodium Chloride (Sodium Chloride Flush Syringe 10 Ml) 10 ml IV BID YOVANA Sodium Chloride (Sodium Chloride Flush Syringe 10 Ml) 10 ml IV PRN PRN PRN Reason: LINE FLUSH Tramadol HCl (Ultram) 50 mg PO Q4H PRN PRN Reason: Pain, Mild (1-3) Zolpidem Tartrate (Ambien) 5 mg PO QHS PRN PRN Reason: Sleep Review of Systems All systems: negative (as per hpi) Physical Examination Vital Signs Temp Pulse Resp BP Pulse Ox 98.9 F 93 H 17 118/92 100 12/16/18 17:30 12/16/18 17:30 12/16/18 17:30 12/16/18 17:30 12/16/18 17:30 General appearance: no acute distress, well-nourished HEENT: Positive: PERRL, Mucus Membranes Moist Neck: Positive: neck supple, trachea midline Cardiac: Positive: Reg Rate and Rhythm, S1/S2, Audible Murmur (2/6) Lungs: Positive: clear to auscultation, Normal Breath Sounds Neuro: Positive: Grossly Intact Abdomen: Positive: Soft, Active Bowel Sounds. Negative: Tender, Distended Male genitourinary: Positive: normal Skin: Positive: Clear Incision: Cardiac Cath Site Musculoskeletal: No Pain, Normal Range of Motion Extremities: Present: normal. Absent: edema Results 12/16/18 17:41 12/16/18 17:41 Cardiac Enzymes 12/16/18 Range/Units 17:41 AST 19 (5-40) units/L Coagulation 12/16/18 Range/Units 17:41 PT 13.1 (12.2-14.9) Sec. INR 1.02 (0.87-1.13) APTT 166.4 H* (24.2-36.6) Sec. CBC 12/16/18 Range/Units 17:41 WBC 11.5 H (4.5-11.0) K/mm3 RBC 4.64 (3.65-5.03) M/mm3 Hgb 14.1 (11.8-15.2) gm/dl Hct 41.6 (35.5-45.6) % Plt Count 299 (140-440) K/mm3 Lymph # 3.4 (1.2-5.4) K/mm3 [place] # 0.8 (0.0-0.8) K/mm3 Eos # 0.1 (0.0-0.4) K/mm3 Baso # 0.1 (0.0-0.1) K/mm3 Comprehensive Metabolic Panel 12/16/18 Range/Units 17:41 Sodium 140 (137-145) mmol/L Potassium 3.5 L (3.6-5.0) mmol/L Chloride 103.9 (98-107) mmol/L Carbon Dioxide 21 L (22-30) mmol/L BUN 10 (9-20) mg/dL Creatinine 1.1 (0.8-1.5) mg/dL Glucose 83 (75-100) mg/dL Calcium 8.8 (8.4-10.2) mg/dL AST 19 (5-40) units/L ALT 14 (7-56) units/L Alkaline Phosphatase 58 (35-129) units/L Total Protein 7.2 (6.3-8.2) g/dL Albumin 3.9 (3.9-5) g/dL - Imaging and Cardiology Cardiac cath: report reviewed (left main patent LAD patent with mild luminal Kerekes circumflex patent ramus small patent RCA mid 99% mild inferior posterior wall hypokinesis patient had successful PCI of the mid RCA with a drug-eluting resolute on a 4.0 x 26 mm) EKG interpretations - Telemetry EKG Rhythm: Sinus Rhythm (nsr acute inferior posterior wall mi) Assessment and Plan Patient is post-PCI of the RCA will continue dual antiplatelet therapy with aspirin and Plavix high-dose statin will hold off beta yazmin JOSHUA inhibitor and ARB in view of low blood pressure during the case in which was requiring levophed and atropine. Patiently monitored in CCU discussed in detail with the patient patient's family will redetermine beta blockers or JOSHUA inhibitor once patient is more stable. Stressed importance of smoking cessation patient's expressed understanding - Patient Problems (1) Acute diastolic CHF (congestive heart failure) Current Visit: Yes Status: Acute (2) Hyperlipemia, mixed Current Visit: Yes Status: Acute (3) Smoker Current Visit: Yes Status: Chronic (4) STEMI (ST elevation myocardial infarction) Current Visit: No Status: Acute Qualifiers: Involved coronary artery: right coronary artery Qualified Code(s): I21.11 - ST elevation (STEMI) myocardial infarction involving right coronary artery
--- NOTE | 2018-12-16 19:04 | Cardiac Catherization Report ---
LEFT HEART CATHETERIZATION/PERCUTANEOUS CORONARY/INTRAVASCULAR ULTRASOUND REPORT CLINICAL INFORMATION: This is a 43-year-old -Greek gentleman who is a smoker, presents with acute chest pain at 5:00 p.m. was driven to the ED and was found to have an acute inferior posterior wall AL. Cardiac laborer hoisting was emergently called. The patient was then moderate sedation, 50 of fentanyl was given. The total sedation time was 30 minutes, started 0805, finished at 0835. Procedure was done via the right radial artery, sterile technique, local anesthesia, 6-[place] African radial sheath inserted. CORONARY FINDINGS: Left system engaged with JL3.5 catheter. Left main is large and patent, bifurcates into medium caliber LAD, proximal and then bifurcates into a small to medium caliber diagonal that is patent with mild irregularities and rest of the LAD is a small to medium caliber vessel, patent with mild luminal irregularities. Ramus is a small caliber vessel that is patent. Circumflex is a small to medium caliber vessel that is patent, goes into a small caliber OM1 that is patent. RCA engaged with JR4 catheter, is a large dominant vessel, mid 100% with GEOVANNY 1 flow ruptured plaque in the mid RCA. LV gram done in CLAUDIA and PIKE view shows mild LV dysfunction with inferior posterior wall hypokinesis, EF approximately 45%. LVEDP at 32 mmHg, LV is 125, aortic is 119/80. No gradient across the aortic valve on pullback. PERCUTANEOUS/INTRAVASCULAR ULTRASOUND OF THE RCA: 1. Engaged RCA with 6-South African JR4 guiding catheter. 2. Crossed and distal RCA with a short [place] wire. 3. Predilated with a 2.5 x 10 balloon at 12 atmospheres. 4. GEOVANNY 3 flow was restored, large distal RCA with large PDA, PLV covering the whole lateral branch with mild luminal irregularities, so intravascular ultrasound showed proximal and distal reference of 4.0 and mid RCA diffusely diseased. 5. Stented the mid RCA with a drug-eluting Resolute Lion 4.0 x 26 mm at 12 atmospheres. 6. Repeat angiogram showed excellent angiographic result. Continued GEOVANNY 3 flow. No dissection or perforation, no embolization noted. Coronary wire was removed. Multiple angiograms continued GEOVANNY 3 flow. No dissection or perforation noted. 7. A 6-South African guiding catheter taken over guidewire, 6-South African radial sheath was discontinued. Radial band applied. No hematoma, no bleeding. SUMMARY: 1. Successful PCI of mid RCA with a drug-eluting Resolute Lion 4.0 x 26 IVUS directed. 2. Left main patent. LAD patent with mild luminal irregularities. Diagonal 1 patent, mild luminal irregularities. Ramus small patent, circumflex patent, OM1 patent. RCA is a large dominant vessel. The proximal and distal patent, mid stent is patent now with a PDA, PLV covering the whole lateral wall. 3. Mild LV dysfunction, inferior posterior wall hypokinesis. 4. Dual antiplatelet therapy, statin. We will hold off beta ayzmin and JOSHUA inhibitor in view of low blood pressure. The patient was bradycardic during the case, requiring IV atropine and Levophed. The patient will be monitored in CCU. Discussed this in detail with the patient and the patient's family. The patient is currently chest pain free. JOB# [id number] MALIHA/ANGELICA
[2018-12-16] MEDS: NACL 0.45% 1000 ML 1,000 ML IV SCH (20:25)
[2018-12-16] MEDS: SODIUM CHLORIDE FLUSH SYRINGE 10 ML IV SCH (22:40)
[2018-12-17 04:33] LABS: Basophils # (Auto) 0.1 K/mm3 (0.0-0.1); Basophils % (Auto) 0.6 % (0.0-1.8); Eosinophils # (Auto) 0.1 K/mm3 (0.0-0.4); Eosinophils % (Auto) 0.4 % (0.0-4.3); Lymphocytes # (Auto) 2.6 K/mm3 (1.2-5.4); Lymphocytes % (Auto) 18.5 % (13.4-35.0); Mean Corpuscular HGB Conc 33 % (32-34); Mean Corpuscular Volume 90 fl (84-94); Monocytes % (Auto) 7.3 % (0.0-7.3); Platelet Count 258 K/mm3 (140-440); Red Blood Count 4.67 M/mm3 (3.65-5.03); Red Cell Distribution Width 15.8 % (13.2-15.2)
[2018-12-17 05:25] LABS: Creatine Kinase MB 66.5 ng/mL (0.0-4.0)
[2018-12-17 05:26] LABS: Alanine Aminotransferase 17 units/L (7-56); Albumin 3.6 g/dL (3.9-5); BUN/Creatinine Ratio 9; Blood Urea Nitrogen 8 mg/dL (9-20); Calcium 8.3 mg/dL (8.4-10.2); Hemolysis Index 12
[2018-12-17] MEDS: NACL 0.45% 1000 ML 1,000 ML IV SCH (05:51)
[2018-12-17] MEDS: HEPARIN 10,000 UNITS/10 ML IV ONE (07:30)
--- NOTE | 2018-12-17 07:54 | Consultation ---
History of Present Illness Consult date: 12/17/18 Requesting physician: DOV CABRALES Reason for consult: other (STEMI s/p PCI) History of present illness: 43-year-old male with history of smoking was driving to work at acute midsternal chest pressure with nausea and no vomiting mild diaphoresis was brought in by his aunt has not had similar pain in the past did not pass out EKG revealed acute inferior posterior wall NE. Patient was emergently taken to the cardiac Resistor Inspector and cardiac cath revealed left main patent LAD patent with mild luminal Kerekes circumflex patent ramus small patent RCA mid 99% mild inferior posterior wall hypokinesis patient had successful PCI of the mid RCA with a drug-eluting resolute on a 4.0 x 26 mm. Patient was chest pain-free at the case. Was done by the right radial artery. Patient denies any similar type pain in the past d enies any drug use denies any fever or denies any syncope or palpitations. Patient was admitted to the ICU post procedure and I have been consulted for critical care management. Patient remains pain free. Seen and examined, vitals, labs, medications, cahrt reviewed. Past History Past Medical History: other (Nicotine Dependence) Past Surgical History: No surgical history, Other (reviewed) Social history: single, smoking Family history: hypertension Medications and Allergies Allergies Allergy/AdvReac Type Severity Reaction Status Date / Time No Known Allergies Allergy Verified 12/16/18 17:26 Home Medications Medication Instructions Recorded Confirmed Last Taken Type Amoxicillin/K Clav Tab [Augmentin 1 tab PO Q12HR #20 tab 03/25/17 12/17/18 Unknown Rx 875 mg] Ibuprofen [Motrin 800 MG tab] 800 mg PO Q8HR PRN #30 tablet 03/25/17 12/17/18 Unknown Rx Ofloxacin [Ofloxacin 0.3%] 1 drop OP Q3H #1 bottle 03/25/17 12/17/18 Unknown Rx Oxymetazoline 0.05% [Afrin] 1 spray NS BID #1 bottle 03/25/17 12/17/18 Unknown Rx Ibuprofen [Motrin] 600 mg PO Q8H PRN #12 tablet 05/18/17 12/17/18 Unknown Rx cephALEXin [Keflex] 500 mg PO Q8HR #30 cap 05/18/17 12/17/18 Unknown Rx Active Meds: Active Medications Acetaminophen/Hydrocodone Bitart ([place] 5/325) 1 each PO Q6H PRN PRN Reason: Pain, Moderate (4-6) Aspirin (Baby Aspirin) 81 mg PO QDAY [facility] Atorvastatin Calcium (Lipitor) 80 mg PO QHS [facility] Last Admin: 12/16/18 22:41 Dose: 80 mg Documented by: Clopidogrel Bisulfate (Plavix) 75 mg PO QDAY [facility] Sodium Chloride (Nacl 0.45% 1000 Ml) 1,000 mls @ 100 mls/hr IV DIRECT [facility] Last Admin: 12/17/18 05:51 Dose: 100 mls/hr Documented by: Ondansetron HCl (Zofran) 4 mg IV Q8H PRN PRN Reason: N/V unrelieved by Reglan Sodium Chloride (Sodium Chloride Flush Syringe 10 Ml) 10 ml IV BID [facility] Last Admin: 12/16/18 22:40 Dose: 10 ml Documented by: Sodium Chloride (Sodium Chloride Flush Syringe 10 Ml) 10 ml IV PRN PRN PRN Reason: LINE FLUSH Tramadol HCl (Ultram) 50 mg PO Q4H PRN PRN Reason: Pain, Mild (1-3) Zolpidem Tartrate (Ambien) 5 mg PO QHS PRN PRN Reason: Sleep Review of Systems All systems: negative Physical Examination Vital signs: Vital Signs Pulse Resp 101 H 19 12/16/18 17:28 12/16/18 17:28 Results - Laboratory Findings CBC and BMP: 12/17/18 03:26 12/17/18 03:26 PT/INR, D-dimer PT 13.1 Sec. (12.2-14.9) 12/16/18 17:41 INR 1.02 (0.87-1.13) 12/16/18 17:41 Abnormal lab findings: Abnormal Labs 12/16/18 12/16/18 12/16/18 17:41 17:41 17:41 WBC 11.5 H RDW 15.7 H [place] # Seg Neutrophils % Seg Neutrophils # APTT 166.4 H* Potassium 3.5 L Carbon Dioxide 21 L BUN Glucose Calcium AST Total Creatine Kinase CK-MB (CK-2) CK-MB (CK-2) Rel Index Troponin T Albumin 12/16/18 12/17/18 12/17/18 23:10 03:26 03:26 WBC 13.9 H RDW 15.8 H [place] # 1.0 H Seg Neutrophils % 73.2 H Seg Neutrophils # 10.2 H APTT Potassium Carbon Dioxide BUN 8 L Glucose 74 L Calcium 8.3 L AST 73 H Total Creatine Kinase 698 H CK-MB (CK-2) 66.5 H CK-MB (CK-2) Rel Index 9.5 H Troponin T 2.420 H* D 2.460 H* Albumin 3.6 L Assessment and Plan STEMI s/p PCI Tobacco use disorder/Nicotine dependence
--- NOTE | 2018-12-17 08:43 | Progress Note ---
Assessment and Plan pt is chest pain free and dhf compensated, transfer to [facility], unable to start beta yazmin secondary to bradycardia and will start losartan 25mg and cont asa and plavix and statin, spoke again about smoking cessation. - Patient Problems (1) Acute diastolic CHF (congestive heart failure) Current Visit: Yes Status: Acute (2) Hyperlipemia, mixed Current Visit: Yes Status: Acute (3) Smoker Current Visit: Yes Status: Chronic (4) STEMI (ST elevation myocardial infarction) Current Visit: No Status: Acute Qualifiers: Involved coronary artery: right coronary artery Qualified Code(s): I21.11 - ST elevation (STEMI) myocardial infarction involving right coronary artery Subjective Date of service: 12/17/18 Principal diagnosis: acute mi Interval history: pt is chest pain free this am Objective Vital Signs Temp Pulse Pulse Resp Resp BP Pulse Ox 12/17/18 08:00 98.7 F 12/17/18 07:12 100 12/17/18 07:00 62 19 133/80 100 12/17/18 06:00 65 64 20 133/83 100 12/17/18 05:00 59 L 17 111/66 100 12/17/18 04:05 59 L 18 100 12/17/18 04:00 98.4 F 59 L 20 128/79 100 12/17/18 03:41 68 21 123/79 12/17/18 03:31 63 18 123/79 12/17/18 03:21 73 19 123/79 12/17/18 03:11 66 16 123/79 12/17/18 03:00 61 17 123/79 12/17/18 02:51 70 19 130/96 100 12/17/18 02:41 62 16 125/67 12/17/18 02:31 59 L 16 125/67 12/17/18 02:21 60 17 125/67 12/17/18 02:11 59 L 18 130/96 12/17/18 02:00 78 64 17 130/96 12/17/18 01:51 60 15 137/87 12/17/18 01:41 58 L 16 137/87 12/17/18 01:31 61 16 137/87 12/17/18 01:21 58 L 17 137/87 12/17/18 01:11 59 L 15 125/67 12/17/18 01:01 60 21 125/67 100 12/17/18 00:51 58 L 18 137/87 100 12/17/18 00:41 57 L 19 137/87 100 12/17/18 00:31 60 18 137/87 100 12/17/18 00:23 59 L 19 137/87 100 12/17/18 00:21 67 14 137/87 100 12/17/18 00:11 63 13 141/85 100 12/17/18 00:00 98.4 F 55 L 65 20 141/85 100 12/16/18 23:50 63 17 148/82 100 12/16/18 23:41 76 15 144/89 100 12/16/18 23:30 59 L 10 L 144/89 100 12/16/18 23:21 58 L 19 142/89 100 12/16/18 23:11 60 14 135/88 100 12/16/18 23:00 55 L 18 142/88 100 12/16/18 22:51 58 L 21 135/88 100 12/16/18 22:41 69 17 140/80 100 12/16/18 22:30 71 19 141/89 99 12/16/18 22:22 16 12/16/18 22:21 63 13 140/80 100 12/16/18 22:11 63 20 119/83 100 12/16/18 22:05 63 12/16/18 22:00 62 13 132/89 100 12/16/18 21:51 86 19 136/82 100 12/16/18 21:41 71 16 129/83 100 12/16/18 21:30 64 20 119/83 100 12/16/18 21:21 64 16 120/78 100 12/16/18 21:11 61 19 117/76 100 12/16/18 21:00 88 14 129/83 100 12/16/18 20:51 68 18 100 12/16/18 20:40 65 15 100 12/16/18 20:30 100 12/16/18 20:00 98.0 F 12/16/18 19:30 67 67 16 100 12/16/18 17:41 102 H 12 118/92 99 12/16/18 17:31 104 H 11 L 118/92 98 12/16/18 17:30 98.9 F 93 H 17 118/92 100 12/16/18 17:28 101 H 19 - Physical Examination General: Appears Well HEENT: Positive: PERRL, Mucus Membranes Moist Neck: Positive: neck supple, trachea midline Cardiac: Positive: Reg Rate and Rhythm Lungs: Positive: Normal Exam Neuro: Positive: Grossly Intact Abdomen: Positive: Soft, Active Bowel Sounds. Negative: Tender, Distended Skin: Positive: Clear Incision: Cardiac Cath Site Musculoskeletal: No Pain, Normal Range of Motion Extremities: Present: normal. Absent: edema - Labs and Meds Cardiac Enzymes 12/16/18 12/17/18 Range/Units 17:41 03:26 AST 19 73 H (5-40) units/L CK-MB (CK-2) 66.5 H (0.0-4.0) ng/mL Coagulation 12/16/18 Range/Units 17:41 PT 13.1 (12.2-14.9) Sec. INR 1.02 (0.87-1.13) APTT 166.4 H* (24.2-36.6) Sec. CBC 12/16/18 12/17/18 Range/Units 17:41 03:26 WBC 11.5 H 13.9 H (4.5-11.0) K/mm3 RBC 4.64 4.67 (3.65-5.03) M/mm3 Hgb 14.1 14.0 (11.8-15.2) gm/dl Hct 41.6 42.0 (35.5-45.6) % Plt Count 299 258 (140-440) K/mm3 Lymph # 3.4 2.6 (1.2-5.4) K/mm3 [place] # 0.8 1.0 H (0.0-0.8) K/mm3 Eos # 0.1 0.1 (0.0-0.4) K/mm3 Baso # 0.1 0.1 (0.0-0.1) K/mm3 Comprehensive Metabolic Panel 12/16/18 12/17/18 Range/Units 17:41 03:26 Sodium 140 138 (137-145) mmol/L Potassium 3.5 L 4.3 D (3.6-5.0) mmol/L Chloride 103.9 105.0 (98-107) mmol/L Carbon Dioxide 21 L 22 (22-30) mmol/L BUN 10 8 L (9-20) mg/dL Creatinine 1.1 0.9 (0.8-1.5) mg/dL Glucose 83 74 L (75-100) mg/dL Calcium 8.8 8.3 L (8.4-10.2) mg/dL AST 19 73 H (5-40) units/L ALT 14 17 (7-56) units/L Alkaline Phosphatase 58 51 (35-129) units/L Total Protein 7.2 6.6 (6.3-8.2) g/dL Albumin 3.9 3.6 L (3.9-5) g/dL - Imaging and Cardiology Cardiac cath: report reviewed (left main patent LAD patent with mild luminal Kerekes circumflex patent ramus small patent RCA mid 99% mild inferior posterior wall hypokinesis patient had successful PCI of the mid RCA with a drug-eluting resolute on a 4.0 x 26 mm) - Telemetry EKG Rhythm: Sinus Rhythm (ekg nsr at 60 mild t wave inversion inferior leads)
[2018-12-17] MEDS: PLAVIX PO SCH (10:42)
[2018-12-17] MEDS: SODIUM CHLORIDE FLUSH SYRINGE 10 ML IV SCH ×2 (10:42→21:28)
[2018-12-17] MEDS: COZAAR PO SCH (10:42)
[2018-12-17] MEDS: BABY ASPIRIN PO SCH (10:42)
--- NOTE | 2018-12-17 10:57 | Progress Note ---
Assessment and Plan Assessment and plan: Acute coronary syndrome/ST elevation NH. Patient status post catheterization with PCI. Continue losartan, aspirin, Plavix and statin. No beta yazmin secondary to bradycardia. Acute diastolic heart failure. Continue losartan. Diuresis per cardiology. Echocardiogram pending. Tobacco abuse. Patient has been counseled on smoking cessation. Hyperlipidemia. Continue Lipitor 80 mg daily at bedtime. Disposition. Patient will be transferred to the floor. History Interval history: 43-year-old male with history of smoking was driving to work at acute midsternal chest pressure with nausea and no vomiting mild diaphoresis was brought in by his aunt has not had similar pain in the past did not pass out EKG revealed acute inferior posterior wall NH. Patient was emergently taken to the cardiac Trial [employer] and cardiac cath revealed left main patent LAD patent with mild luminal irregularities circumflex patent ramus small patent RCA mid 99% mild inferior posterior wall hypokinesis patient had successful PCI of the mid RCA with a drug-eluting resolute on a 4.0 x 26 mm. Patient was chest pain-free at the case. Was done by the right radial artery. Hospitalist Physical - Constitutional Vitals: Temp Pulse Resp BP Pulse Ox 98.7 F 62 19 144/81 100 12/17/18 08:00 12/17/18 10:50 12/17/18 07:00 12/17/18 10:50 12/17/18 07:12 General appearance: Present: severe distress - EENT Eyes: Present: PERRL, EOM intact ENT: hearing intact, clear oral mucosa, dentition normal - Neck Neck: Present: supple, normal ROM - Respiratory Respiratory effort: normal Respiratory: bilateral: CTA - Cardiovascular Rhythm: regular Heart Sounds: Present: S1 & S2. Absent: gallop, rub - Extremities Extremities: no ischemia, No edema, Full ROM - Abdominal General gastrointestinal: soft, non-tender, non-distended, normal bowel sounds - Integumentary Integumentary: Present: clear, warm, dry - Neurologic Neurologic: CNII-XII intact, moves all extremities Results - Labs CBC & Chem 7: 12/17/18 03:26 12/17/18 03:26 Labs: Laboratory Last Values WBC 13.9 K/mm3 (4.5-11.0) H 12/17/18 03:26 RBC 4.67 M/mm3 (3.65-5.03) 12/17/18 03:26 Hgb 14.0 gm/dl (11.8-15.2) 12/17/18 03:26 Hct 42.0 % (35.5-45.6) 12/17/18 03:26 MCV 90 fl (84-94) 12/17/18 03:26 MCH 30 pg (28-32) 12/17/18 03:26 MCHC 33 % (32-34) 12/17/18 03:26 RDW 15.8 % (13.2-15.2) H 12/17/18 03:26 Plt Count 258 K/mm3 (140-440) 12/17/18 03:26 Lymph % (Auto) 18.5 % (13.4-35.0) 12/17/18 03:26 [place] % (Auto) 7.3 % (0.0-7.3) 12/17/18 03:26 Eos % (Auto) 0.4 % (0.0-4.3) 12/17/18 03:26 Baso % (Auto) 0.6 % (0.0-1.8) 12/17/18 03:26 Lymph # 2.6 K/mm3 (1.2-5.4) 12/17/18 03:26 [place] # 1.0 K/mm3 (0.0-0.8) H 12/17/18 03:26 Eos # 0.1 K/mm3 (0.0-0.4) 12/17/18 03:26 Baso # 0.1 K/mm3 (0.0-0.1) 12/17/18 03:26 Seg Neutrophils % 73.2 % (40.0-70.0) H 12/17/18 03:26 Seg Neutrophils # 10.2 K/mm3 (1.8-7.7) H 12/17/18 03:26 PT 13.1 Sec. (12.2-14.9) 12/16/18 17:41 INR 1.02 (0.87-1.13) 12/16/18 17:41 APTT 166.4 Sec. (24.2-36.6) H* 12/16/18 17:41 Sodium 138 mmol/L (137-145) 12/17/18 03:26 Potassium 4.3 mmol/L (3.6-5.0) D 12/17/18 03:26 Chloride 105.0 mmol/L (98-107) 12/17/18 03:26 Carbon Dioxide 22 mmol/L (22-30) 12/17/18 03:26 15 mmol/L 12/17/18 03:26 BUN 8 mg/dL (9-20) L 12/17/18 03:26 0.9 mg/dL (0.8-1.5) 12/17/18 03:26 Estimated GFR > 60 ml/min 12/17/18 03:26 9 % 12/17/18 03:26 Glucose 74 mg/dL (75-100) L 12/17/18 03:26 Calcium 8.3 mg/dL (8.4-10.2) L 12/17/18 03:26 0.40 mg/dL (0.1-1.2) 12/17/18 03:26 AST 73 units/L (5-40) H 12/17/18 03:26 ALT 17 units/L (7-56) 12/17/18 03:26 51 units/L (35-129) 12/17/18 03:26 698 units/L (55-170) H 12/17/18 03:26 CK-MB (CK-2) 66.5 ng/mL (0.0-4.0) H 12/17/18 03:26 CK-MB (CK-2) Rel Index 9.5 (0-4) H 12/17/18 03:26 2.460 ng/mL (0.00-0.029) H* 12/17/18 03:26 6.6 g/dL (6.3-8.2) 12/17/18 03:26 3.6 g/dL (3.9-5) L 12/17/18 03:26 1.2 % 12/17/18 03:26 Yellow (Yellow) 12/16/18 17:42 Clear (Clear) 12/16/18 17:42 5.0 (5.0-7.0) 12/16/18 17:42 Ur Specific [place] 1.010 (1.003-1.030) 12/16/18 17:42 <15 mg/dl mg/dL (Negative) 12/16/18 17:42 Neg mg/dL (Negative) 12/16/18 17:42 Neg mg/dL (Negative) 12/16/18 17:42 Neg (Negative) 12/16/18 17:42 Neg (Negative) 12/16/18 17:42 Neg (Negative) 12/16/18 17:42 < 2.0 mg/dL (<2.0) 12/16/18 17:42 Ur Leukocyte Esterase Neg (Negative) 12/16/18 17:42 1.0 /HPF (0.0-6.0) 12/16/18 17:42 1.0 /HPF (0.0-6.0) 12/16/18 17:42 Presumptive negative 12/16/18 17:42 Presumptive negative 12/16/18 17:42 Ur Barbiturates Screen Presumptive negative 12/16/18 17:42 Ur Phencyclidine Scrn Presumptive negative 12/16/18 17:42 Ur Amphetamines Screen Presumptive negative 12/16/18 17:42 U Benzodiazepines Scrn Presumptive negative 12/16/18 17:42 Presumptive negative 12/16/18 17:42 U Marijuana (THC) Screen Presumptive negative 12/16/18 17:42 Disclamer 12/16/18 17:42 Active Medications - Current Medications Current Medications: Generic Name Dose Route Start Last Admin Trade Name Freq PRN Reason Stop Dose Admin Acetaminophen/Hydrocodone Bitart 1 each 12/16/18 18:48 [place] 5/325 PO Q6H PRN Pain, Moderate (4-6) Aspirin 81 mg 12/17/18 10:00 12/17/18 10:42 Baby Aspirin PO 81 mg QDAY YOVANA Administration Atorvastatin Calcium 80 mg 12/16/18 22:00 12/16/18 22:41 Lipitor PO 80 mg QHS YOVANA Administration Clopidogrel Bisulfate 75 mg 12/17/18 10:00 12/17/18 10:42 Plavix PO 75 mg QDAY YOVANA Administration Sodium Chloride 1,000 mls @ 100 mls/hr 12/16/18 19:00 12/17/18 05:51 Nacl 0.45% 1000 Ml IV 100 mls/hr DIRECT YOVANA Administration Losartan Potassium 25 mg 12/17/18 10:00 12/17/18 10:42 Cozaar PO 25 mg QDAY YOVANA Administration Ondansetron HCl 4 mg 12/16/18 18:48 Zofran IV Q8H PRN N/V unrelieved by Yanci Sodium Chloride 10 ml 12/16/18 22:00 12/17/18 10:42 Sodium Chloride Flush Syringe 10 Ml IV 10 ml BID YOVANA Administration Sodium Chloride 10 ml 12/16/18 17:52 Sodium Chloride Flush Syringe 10 Ml IV PRN PRN LINE FLUSH Tramadol HCl 50 mg 12/16/18 18:48 Ultram PO Q4H PRN Pain, Mild (1-3) Zolpidem Tartrate 5 mg 12/16/18 18:48 Ambien PO QHS PRN Sleep
[2018-12-18 08:22] LABS: BUN/Creatinine Ratio 8; Blood Urea Nitrogen 9 mg/dL (9-20); Calcium 9.1 mg/dL (8.4-10.2); Hemolysis Index 4
[2018-12-18 08:30] LABS: Basophils % (Auto) 0.5 % (0.0-1.8); Eosinophils # (Auto) 0.1 K/mm3 (0.0-0.4); Eosinophils % (Auto) 0.9 % (0.0-4.3); Hemoglobin 14.3 gm/dl (11.8-15.2); Lymphocytes % (Auto) 24.9 % (13.4-35.0); Mean Corpuscular HGB Conc 33 % (32-34); Mean Corpuscular Volume 89 fl (84-94); Monocytes # (Auto) 0.9 K/mm3 (0.0-0.8); Monocytes % (Auto) 10.6 % (0.0-7.3); Platelet Count 282 K/mm3 (140-440); Red Blood Count 4.82 M/mm3 (3.65-5.03); Red Cell Distribution Width 15.6 % (13.2-15.2)
[2018-12-18] MEDS: COZAAR PO SCH (10:20)
[2018-12-18] MEDS: BABY ASPIRIN PO SCH (10:20)
[2018-12-18] MEDS: SODIUM CHLORIDE FLUSH SYRINGE 10 ML IV SCH (10:20)
[2018-12-18] MEDS: PLAVIX PO SCH (10:20)
[2018-12-18 12:04] VITALS: BP 118/80
--- NOTE | 2018-12-18 12:17 | Progress Note ---
Assessment and Plan Patient has mild inferior lateral hypokinesis with mild aortic regurgitation mild mitral regurgitation patient has deep T-wave inversion inferiorly post MN but has no chest pain and troponin has trended down. Patient will be on aspirin and Plavix high-dose statin no beta blockers in view of lower heart rate and continue losartan and follow-up in the office this week - Patient Problems (1) Acute diastolic CHF (congestive heart failure) Current Visit: Yes Status: Acute (2) Hyperlipemia, mixed Current Visit: Yes Status: Acute (3) Smoker Current Visit: Yes Status: Chronic (4) STEMI (ST elevation myocardial infarction) Current Visit: No Status: Acute Qualifiers: Qualified Code(s): I21.11 - ST elevation (STEMI) myocardial infarction involving right coronary artery Subjective Date of service: 12/18/18 Principal diagnosis: acute mi Interval history: no chest pain Objective Vital Signs Temp Pulse Pulse Resp BP BP Pulse Ox 12/18/18 12:02 98.4 F 63 18 118/80 99 12/18/18 08:08 72 12/18/18 08:03 98.2 F 63 18 130/81 100 12/18/18 04:24 98.1 F 65 18 118/79 99 12/18/18 03:30 79 16 120/75 99 12/18/18 03:22 77 13 120/75 98 12/17/18 23:58 98.5 F 60 18 122/84 100 12/17/18 22:00 70 12/17/18 19:10 98.3 F 71 18 122/81 99 12/17/18 15:45 98.7 F 58 L 18 121/76 100 12/17/18 12:55 98.6 F 71 18 145/85 100 - Physical Examination General: Appears Well HEENT: Positive: PERRL, Mucus Membranes Moist Neck: Positive: neck supple, trachea midline Cardiac: Positive: Reg Rate and Rhythm Lungs: Positive: clear to auscultation Neuro: Positive: Grossly Intact Abdomen: Positive: Soft, Active Bowel Sounds. Negative: Tender, Distended Skin: Positive: Clear Incision: Cardiac Cath Site Musculoskeletal: No Pain, Normal Range of Motion Extremities: Present: normal. Absent: edema - Labs and Meds CBC 12/18/18 Range/Units 06:47 WBC 8.1 (4.5-11.0) K/mm3 RBC 4.82 (3.65-5.03) M/mm3 Hgb 14.3 (11.8-15.2) gm/dl Hct 43.0 (35.5-45.6) % Plt Count 282 (140-440) K/mm3 Lymph # 2.0 (1.2-5.4) K/mm3 [place] # 0.9 H (0.0-0.8) K/mm3 Eos # 0.1 (0.0-0.4) K/mm3 Baso # 0.0 (0.0-0.1) K/mm3 Comprehensive Metabolic Panel 12/18/18 Range/Units 06:47 Sodium 139 (137-145) mmol/L Potassium 4.6 (3.6-5.0) mmol/L Chloride 103.2 (98-107) mmol/L Carbon Dioxide 25 (22-30) mmol/L BUN 9 (9-20) mg/dL Creatinine 1.1 (0.8-1.5) mg/dL Glucose 91 (75-100) mg/dL Calcium 9.1 (8.4-10.2) mg/dL - Imaging and Cardiology Echo: report reviewed (mild LV dysfunction EF 45% with inferior lateral hypokinesis mild aortic regurgitation and mild mitral regurgitation) Cardiac cath: report reviewed (left main patent LAD patent with mild luminal Kerekes circumflex patent ramus small patent RCA mid 99% mild inferior posterior wall hypokinesis patient had successful PCI of the mid RCA with a drug-eluting resolute on a 4.0 x 26 mm) - Telemetry EKG Rhythm: Sinus Rhythm - EKG Sinus rhythms and dysrhythmias: sinus rhythm (nsr t wave inversion deep in inferior leads )
--- NOTE | 2018-12-18 12:19 | Discharge Summary ---
Providers - Providers Date of Admission: 12/16/18 17:52 Date of discharge: 12/18/18 Attending physician: HALLEY WILKINS 12/16/18 Consult to Cardiac Rehabilitation [CONS] Routine Reason For Exam: post pci 12/16/18 17:51 Consult to Physician [CONS] Stat Comment: Consulting Provider: CORINE GARRIDO Physician Instructions: Reason For Exam: stemi 12/17/18 07:24 Consult to Physician [CONS] Urgent Comment: Consulting Provider: GUS BOLTON Physician Instructions: Reason For Exam: critical care management Primary care physician: RATE CLERK Hospitalization Reason for admission: STEMI Condition: Stable Hospital course: 43-year-old male with history of smoking was driving to work at acute midsternal chest pressure with nausea and no vomiting mild diaphoresis was brought in by his aunt has not had similar pain in the past did not pass out EKG revealed acute inferior posterior wall UT. Patient was emergently taken to the cardiac Carpenter Supervisor and cardiac cath revealed left main patent LAD patent with mild luminal irregularities circumflex patent ramus small patent RCA mid 99% mild inferior posterior wall hypokinesis patient had successful PCI of the mid RCA with a drug-eluting resolute on a 4.0 x 26 mm. Patient was chest pain-free at the case. Was done by the right radial artery. The patient continue with medical management after catheterization and remained chest pain-free. Diastolic heart failure is compensated and patient was transferred to telemetry. Patient remained stable and is felt to have received maximal hospital benefit to be discharged home. Dedicated discharge time 32 minutes. No beta yazmin secondary to bradycardia. Disposition: - TO HOME OR SELFCARE Time spent for discharge: 32 - Discharge Diagnoses (1) Acute diastolic CHF (congestive heart failure) Status: Acute (2) Hyperlipemia, mixed Status: Acute (3) Nicotine dependence Status: Acute Qualifiers: Nicotine product type: cigarettes (4) Smoker Status: Chronic (5) STEMI (ST elevation myocardial infarction) Status: Acute Qualifiers: Involved coronary artery: right coronary artery Qualified Code(s): I21.11 - ST elevation (STEMI) myocardial infarction involving right coronary artery Core Measure Documentation - Palliative Care Palliative Care/ Comfort Measures: Not Applicable - Core Measures Any of the following diagnoses?: heart failure - Heart Failure Discharge Requirements JOSHUA/ARB for LVSD if EF <40%: Yes Beta yazmin at discharge: No Reason for no beta yazmin on DC: Bradycardia Exam - Constitutional Vitals: Temp Pulse Resp BP Pulse Ox 98.4 F 63 18 118/80 99 12/18/18 12:02 12/18/18 12:02 12/18/18 12:02 12/18/18 12:02 12/18/18 12:02 General appearance: Present: no acute distress, well-nourished - EENT Eyes: Present: PERRL ENT: hearing intact, clear oral mucosa - Neck Neck: Present: supple, normal ROM - Respiratory Respiratory effort: normal Respiratory: bilateral: CTA - Cardiovascular Heart Sounds: Present: S1 & S2. Absent: rub, click - Extremities Extremities: pulses symmetrical, No edema Peripheral Pulses: within normal limits - Abdominal General gastrointestinal: Present: soft, non-tender, non-distended, normal bowel sounds Male genitourinary: Present: normal - Integumentary Integumentary: Present: clear, warm, dry - Musculoskeletal Musculoskeletal: gait normal, strength equal bilaterally - Psychiatric Psychiatric: appropriate mood/affect, intact judgment & insight - Neurologic Neurologic: CNII-XII intact, moves all extremities Plan Activity: advance as tolerated Weight Bearing Status: Full Weight Bearing Diet: low fat, low cholesterol, low salt Follow up with: PRIMARY CAREMD [Primary Care Provider] - 7 Days CORINE GARRIDO MD [Staff Physician] - 7 Days Prescriptions: Zolpidem [Ambien] 5 mg PO QHS PRN #30 tablet PRN Reason: Sleep Aspirin [Aspirin BABY CHEW TAB] 81 mg PO QDAY #30 tab.chew Losartan [Cozaar] 25 mg PO QDAY #30 tablet AtorvaSTATin [Lipitor] 80 mg PO QHS #30 tablet HYDROcodone/APAP 5-325 [[place] 5-325 mg TAB] 1 each PO Q6H PRN #8 tablet PRN Reason: Pain, Moderate (4-6) Clopidogrel [Plavix] 75 mg PO QDAY #30 tablet
[2018-12-18 18:55] LABS: Chol/HDL Ratio 3.03 %
== END 2018-12-18 14:57 | disposition home or self-care (01) | DRG 246 ==
LOC: ED 17:18 → CC1 17:52 → 4A 12-17 12:49
PROVIDERS: ADMIT Internal Medicine; ATTEND Hospitalist
PROC: 027034Z Dilation of Coronary Artery, One Artery with Drug-eluting Intraluminal Device, Percutaneous Approach (ICD-10-PCS; principal; 2018-12-16)
PROC: B240ZZ3 Ultrasonography of Single Coronary Artery, Intravascular (ICD-10-PCS; 2018-12-16)
PROC: 4A023N7 Measurement of Cardiac Sampling and Pressure, Left Heart, Percutaneous Approach (ICD-10-PCS; 2018-12-16)
PROC: B2111ZZ Fluoroscopy of Multiple Coronary Arteries using Low Osmolar Contrast (ICD-10-PCS; 2018-12-16)
PROC: B2151ZZ Fluoroscopy of Left Heart using Low Osmolar Contrast (ICD-10-PCS; 2018-12-16)
DX: I21.11 ST elevation (STEMI) myocardial infarction involving right coronary artery (principal); I50.31 Acute diastolic (congestive) heart failure; F17.210 Nicotine dependence, cigarettes, uncomplicated; E78.2 Mixed hyperlipidemia; Z82.49 Family history of ischemic heart disease and other diseases of the circulatory system; Z79.899 Other long term (current) drug therapy; Z71.6 Tobacco abuse counseling
CPT/HCPCS: 36415; 71045; 80048; 80053; 80061; 80307; 81001; 82550; 82553; 84484; 85025; 85347; 85610; 85730; 92941; 92978; 93005; 93010; 93306; 93458; 94760; 96361; 96374; G0378; A9270-GY; C1725; C1753; C1769; C1874; C1887; C1894; C9606; J0171; J0461; J1644; J2001; J2250; J2370; J3010; J7030; Q9967

== ENCOUNTER 2019-08-16 01:12 | Emergency (ER) | payer OTHER ==
[2019-08-16] MEDS ORDERED: ASPIRIN 325 MG TAB PO ONE (01:17)
--- NOTE | 2019-08-16 01:37 | Emergency Department Report ---
ED Chest Pain HPI - General Chief Complaint: Chest Pain Stated Complaint: CHEST PAIN Time Seen by Provider: 08/16/19 01:32 Source: patient, old records reviewed Mode of arrival: Ambulatory Limitations: No Limitations - History of Present Illness Initial Comments: Chief complaint: "What are you going to do to me?." HPI: Mr. Estrella is a 44-year-old male with history of MA, tobacco abuse, dyslipidemia, diastolic CHF, who presents with right shoulder pain 30 minutes prior to arrival. He has numbness in his arm. He denies chest pain to me. Triage documentation stated he reported cramping chest pain which does not feel like his previous MA. He admits to drinking alcohol prior to arrival. His family member at the bedside admits that he does seem drunk. Gradual onset of pain. No change with breathing or movement. Mild to moderate in severity. According to electronic medical record, in December 2018 at this hospital Mr. Estrella was diagnosed with inferior posterior wall MA, he has a drug-eluting stent at the mid RCA. MD Complaint: chest pain -: Gradual, minutes(s) (30) Onset: during rest Pain Location: substernal Pain Radiation: none Severity: moderate Quality: other (Cramping) Consistency: constant Improves With: nothing Worsens With: nothing - Related Data Previous Rx's Medication Instructions Recorded Last Taken Type Amoxicillin/K Clav Tab [Augmentin 1 tab PO Q12HR #20 tab 03/25/17 Unknown Rx 875MG TAB] Ibuprofen [Motrin 800 MG tab] 800 mg PO Q8HR PRN #30 tablet 03/25/17 Unknown Rx Ofloxacin [Ofloxacin 0.3%] 1 drop OP Q3H #1 bottle 03/25/17 Unknown Rx Oxymetazoline 0.05% [Vicks Sinex] 1 spray NS BID #1 bottle 03/25/17 Unknown Rx Ibuprofen [Motrin 600 MG tab] 600 mg PO Q8H PRN #12 tablet 05/18/17 Unknown Rx cephALEXin [Keflex] 500 mg PO Q8HR #30 cap 05/18/17 Unknown Rx Aspirin [Aspirin BABY CHEW TAB] 81 mg PO QDAY #30 tab.chew 12/18/18 Unknown Rx AtorvaSTATin [Lipitor] 80 mg PO QHS #30 tablet 12/18/18 Unknown Rx Clopidogrel [Plavix] 75 mg PO QDAY #30 tablet 12/18/18 Unknown Rx HYDROcodone/APAP 5-325 [[place] 1 each PO Q6H PRN #8 tablet 12/18/18 Unknown Rx 5-325 mg TAB] Losartan [Cozaar] 25 mg PO QDAY #30 tablet 12/18/18 Unknown Rx Zolpidem [Ambien] 5 mg PO QHS PRN #30 tablet 12/18/18 Unknown Rx Allergies Allergy/AdvReac Type Severity Reaction Status Date / Time No Known Allergies Allergy Verified 12/16/18 17:26 Heart Score - HEART Score History: Slightly suspicious EKG: Normal Age: 45-65 Risk factors: > 3 risk factors or hx of atherosclerotic disease Troponin: < normal limit HEART Score: 3 ED Review of Systems ROS: Stated complaint: CHEST PAIN Other details as noted in HPI Comment: All other systems reviewed and negative Constitutional: denies: fever, malaise Respiratory: denies: cough Cardiovascular: chest pain ED Past Medical Hx - Past Medical History Previous Medical History?: Yes Hx Heart Attack/AMI: Yes Hx Congestive Heart Failure: No Hx Diabetes: No Hx Asthma: No Hx COPD: No - Surgical History Past Surgical History?: No - Social History Smoking Status: Current Every Day Smoker Substance Use Type: Alcohol - Medications Home Medications: Home Medications Medication Instructions Recorded Confirmed Last Taken Type Amoxicillin/K Clav Tab [Augmentin 1 tab PO Q12HR #20 tab 03/25/17 12/17/18 Unknown Rx 875MG TAB] Ibuprofen [Motrin 800 MG tab] 800 mg PO Q8HR PRN #30 tablet 03/25/17 12/17/18 Unknown Rx Ofloxacin [Ofloxacin 0.3%] 1 drop OP Q3H #1 bottle 03/25/17 12/17/18 Unknown Rx Oxymetazoline 0.05% [Vicks Sinex] 1 spray NS BID #1 bottle 03/25/17 12/17/18 Unknown Rx Ibuprofen [Motrin 600 MG tab] 600 mg PO Q8H PRN #12 tablet 05/18/17 12/17/18 Unknown Rx cephALEXin [Keflex] 500 mg PO Q8HR #30 cap 05/18/17 12/17/18 Unknown Rx Aspirin [Aspirin BABY CHEW TAB] 81 mg PO QDAY #30 tab.chew 12/18/18 Unknown Rx AtorvaSTATin [Lipitor] 80 mg PO QHS #30 tablet 12/18/18 Unknown Rx Clopidogrel [Plavix] 75 mg PO QDAY #30 tablet 12/18/18 Unknown Rx HYDROcodone/APAP 5-325 [[place] 1 each PO Q6H PRN #8 tablet 12/18/18 Unknown Rx 5-325 mg TAB] Losartan [Cozaar] 25 mg PO QDAY #30 tablet 12/18/18 Unknown Rx Zolpidem [Ambien] 5 mg PO QHS PRN #30 tablet 12/18/18 Unknown Rx ED Physical Exam - General Limitations: No Limitations General appearance: alert, appears intoxicated, other (Injected eyes, slurred speech, wobbly gait) - Head Head exam: Present: atraumatic, normocephalic - Eye Eye exam: Present: normal appearance - ENT ENT exam: Present: mucous membranes moist - Neck Neck exam: Present: normal inspection, full ROM - Respiratory Respiratory exam: Present: normal lung sounds bilaterally. Absent: respiratory distress, wheezes, rales, rhonchi - Cardiovascular Cardiovascular Exam: Present: regular rate, normal rhythm, normal heart sounds. Absent: systolic murmur, diastolic murmur, rubs, gallop - GI/Abdominal GI/Abdominal exam: Present: soft, normal bowel sounds. Absent: tenderness, guarding, rebound - Rectal Rectal exam: Present: deferred - Extremities Exam Extremities exam: Present: normal inspection - Neurological Exam Neurological exam: Present: alert, oriented X3, CN II-XII intact. Absent: motor sensory deficit - Expanded Neurological Exam Expanded Patient oriented to: Present: person, place, time Sensory exam: Upper Extremity Light Touch: Normal, Upper Extremity Pin Prick: Normal Motor strength exam: RUE: 5, LUE: 5, RLE: 5, LLE: 5 Best Eye Response ([place]): (4) open spontaneously Best Motor Response ([place]): (6) obeys commands Best Verbal Response ([place]): (5) oriented Lupe Total: 15 - Psychiatric Psychiatric exam: Present: normal affect, normal mood - Skin Skin exam: Present: warm, dry, intact, normal color. Absent: rash ED Course Vital Signs 08/16/19 01:13 Temperature 97.6 F Pulse Rate 89 Respiratory 18 Rate Blood Pressure 128/93 O2 Sat by Pulse 97 Oximetry ED Medical Decision Making - Lab Data Result diagrams: 08/16/19 01:48 02/12/20 01:48 - EKG Data EKG shows normal: sinus rhythm, axis, intervals, QRS complexes, ST-T waves Rate: normal - EKG Data Interpretation: normal EKG - Radiology Data Radiology results: report reviewed Chest radiograph 1 view: No acute findings according to radiologist report - Medical Decision Making 1. right shoulder pain with numbness, reported Chest pain atypical for ACS with history of STEMI December last year: Normal EKG x2, normal troponin x2. 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 Acute alcohol intoxication evident with slurred speech, strong odor of alcohol, labile mood. After 2 hours observation patient became belligerent and immediately demanded discharge. He did not have any persistent chest pain. I do not suspect acute emergent illness such as ACS, dissection, TIA or CVA. Critical care attestation.: If time is entered above; I have spent that time in minutes in the direct care of this critically ill patient, excluding procedure time. ED Disposition Clinical Impression: Chest pain, Acute alcohol intoxication Disposition: DC-01 TO HOME OR SELFCARE Is pt being admited?: No Does the pt Need Aspirin: No Condition: Stable Additional Instructions: Please return to the emergency department if you have any concerns or new s ymptoms. Referrals: PRIMARY CARE, [Primary Care Provider] - 2-3 Days
[2019-08-16 02:06] LABS: Basophils # (Auto) 0.1 K/mm3 (0.0-0.1); Basophils % (Auto) 0.8 % (0.0-1.8); Eosinophils % (Auto) 0.4 % (0.0-4.3); Hematocrit 47.5 % (35.5-45.6); Hemoglobin 15.5 gm/dl (11.8-15.2); Lymphocytes # (Auto) 2.1 K/mm3 (1.2-5.4); Mean Corpuscular HGB Conc 33 % (32-34); Mean Corpuscular Volume 89 fl (84-94); Monocytes # (Auto) 0.6 K/mm3 (0.0-0.8); Monocytes % (Auto) 8.4 % (0.0-7.3); Platelet Count 245 K/mm3 (140-440); Red Blood Count 5.33 M/mm3 (3.65-5.03); Red Cell Distribution Width 15.7 % (13.2-15.2)
--- NOTE | 2019-08-16 02:36 | XRay Report ---
CHEST 1 VIEW 08/16/2019 1:36 AM INDICATION / CLINICAL INFORMATION: Chest Pain. COMPARISON: One view of the chest from 12/16/2018. FINDINGS: SUPPORT DEVICES: None. HEART / MEDIASTINUM: No significant abnormality. LUNGS / PLEURA: No significant pulmonary or pleural abnormality. No pneumothorax. ADDITIONAL FINDINGS: No significant additional findings. IMPRESSION: 1. No acute abnormality of the chest. Signer Name: Anurag Mckeon MD Signed: 08/16/2019 2:31 AM Workstation Name: [id number]
[2019-08-16 03:08] LABS: BUN/Creatinine Ratio 8; Blood Urea Nitrogen 8 mg/dL (9-20); Calcium 9.2 mg/dL (8.4-10.2); Hemolysis Index 8
[2019-08-16 05:58] VITALS: BP 128/84
== END 2019-08-16 04:20 | disposition home or self-care (01) ==
LOC: ED 01:12
DX: R07.89 Other chest pain (principal); M25.511 Pain in right shoulder; R20.0 Anesthesia of skin; F10.120 Alcohol abuse with intoxication, uncomplicated; I25.2 Old myocardial infarction; F17.200 Nicotine dependence, unspecified, uncomplicated; Z79.899 Other long term (current) drug therapy
CPT/HCPCS: 36415; 71045; 80048; 84484; 85025; 93005; 93010

== ENCOUNTER 2020-04-10 19:22 | Emergency (ER) | payer OTHER ==
--- NOTE | 2020-04-10 19:32 | Emergency Department Report ---
Blank Doc - Documentation Documentation: 44-year-old male that presents with chest pain and SOB. HX of NV. This initial assessment/diagnostic orders/clinical plan/treatment(s) is/are subject to change based on patient's health status, clinical progression and re- assessment by fellow clinical providers in the ED. Further treatment and workup at subsequent clinical providers discretion. Patient/guardians urged not to elope from the ED as their condition may be serious if not clinically assessed and managed. Initial orders include: 1- Patient sent to MAIN ED for further evaluation and treatment 2- cardiac workup
[2020-04-10 20:23] LABS: Basophils # (Auto) 0.1 K/mm3 (0.0-0.1); Basophils % (Auto) 1.1 % (0.0-1.8); Eosinophils % (Auto) 0.3 % (0.0-4.3); Hematocrit 44.5 % (35.5-45.6); Hemoglobin 14.9 gm/dl (11.8-15.2); Lymphocytes % (Auto) 31.8 % (13.4-35.0); Mean Corpuscular HGB Conc 34 % (32-34); Mean Corpuscular Volume 91 fl (84-94); Monocytes # (Auto) 1.1 K/mm3 (0.0-0.8); Monocytes % (Auto) 11.4 % (0.0-7.3); Platelet Count 266 K/mm3 (140-440); Red Blood Count 4.87 M/mm3 (3.65-5.03); Red Cell Distribution Width 16.1 % (13.2-15.2)
[2020-04-10 20:52] LABS: INR 0.85 (0.87-1.13)
[2020-04-10 20:54] LABS: Alanine Aminotransferase 65 units/L (7-56); Albumin 4.8 g/dL (3.9-5); BUN/Creatinine Ratio 8; Blood Urea Nitrogen 7 mg/dL (9-20); Calcium 9.3 mg/dL (8.4-10.2); Hemolysis Index 20
--- NOTE | 2020-04-10 21:16 | XRay Report ---
CHEST 2 VIEWS INDICATION / CLINICAL INFORMATION: Chest Pain. COMPARISON: 08/16/2019 FINDINGS: SUPPORT DEVICES: None. HEART / MEDIASTINUM: No significant abnormality. LUNGS / PLEURA: No significant pulmonary or pleural abnormality. No pneumothorax. ADDITIONAL FINDINGS: No significant additional findings. IMPRESSION: 1. No acute findings. No significant interval change. Signer Name: Chito Caldwell MD Signed: 04/10/2020 9:11 PM Workstation Name: [id number]
[2020-04-11] MEDS ORDERED: chlordiazePOXIDE 25 MG CAP PO ONE (06:35)
[2020-04-11] MEDS ORDERED: SUCRALFATE 1 GM/10 ML ORAL LIQD PO ONE (06:35)
[2020-04-11] MEDS ORDERED: FAMOTIDINE 20 MG TAB PO ONE (06:35)
--- NOTE | 2020-04-11 06:36 | Emergency Department Report ---
ED General Adult HPI - General Chief complaint: Chest Pain Stated complaint: CHEST PAIN PUI?: No Time Seen by Provider: 04/10/20 19:31 Source: patient, RN notes reviewed, old records reviewed Mode of arrival: Ambulatory Limitations: No Limitations - History of Present Illness Initial comments: The patient was evaluated in the emergency department for symptoms described in the history of present illness. He/she was evaluated in the context of the global COVID-19 pandemic, which necessitated consideration that the patient jazmine ht be at risk for infection with the virus that causes COVID-19. Institutional protocols and algorithms that pertain to the evaluation of patients at risk for COVID-19 are in a state of rapid change based on information released by regulatory bodies including the CDC and federal and state organizations. These policies and algorithms were followed during the patient's care in the emergency department. Please note that these policies, procedures and recommendations changed on a rapid basis. Cardiology: [facility], Dr. Carlos Eduardo Kruger The patient is a 44-year-old gentleman. The patient has a history of myocardial infarction, in 2019, with PCI of the mid RCA, with drug-eluting stent, left main patent, with mild luminal irregularities, also known to have an ejection fraction of 45%. Patient also has a history of tobacco consumption, hyperlipidemia, nicotine dependence, and alcohol consumption. The patient presents to the ER today with a complaint of resolved chest pain. This chest pain started yesterday. It was central. It lasted for around 6 hours, from 6 AM to approximately 12 PM. The patient has been chest pain-free for almost 18 hours. The patient reports no vomiting, diaphoresis or exertional shortness of breath. He denies leg pain, leg swelling, travel, oral contraceptive use, and DVT, pulmonary embolism risk factors. He endorses compliance with his aspirin and Plavix. He states that he saw his wrapper cashier last month, and "everything was okay." No recent cardiac risk ratification since 2019. On a prior visit, the patient was found to be intoxicated by my colleague, Dr. Peña. He tells me that he consumes alcohol "every now and then." He indicates he does not feel shaky or tremulous at this time, and he is not homicidal or suicidal. -: Sudden, hour(s) Location: back Radiation: non-radiation Consistency: now resolved Improves with: none Worsens with: none Associated Symptoms: denies other symptoms - Related Data Previous Rx's Medication Instructions Recorded Last Taken Type Amoxicillin/K Clav Tab [Augmentin 1 tab PO Q12HR #20 tab 03/25/17 Unknown Rx 875MG TAB] Ibuprofen [Motrin 800 MG tab] 800 mg PO Q8HR PRN #30 tablet 03/25/17 Unknown Rx Ofloxacin [Ofloxacin 0.3%] 1 drop OP Q3H #1 bottle 03/25/17 Unknown Rx Oxymetazoline 0.05% [Vicks Sinex] 1 spray NS BID #1 bottle 03/25/17 Unknown Rx Ibuprofen [Motrin 600 MG tab] 600 mg PO Q8H PRN #12 tablet 05/18/17 Unknown Rx cephALEXin [Keflex] 500 mg PO Q8HR #30 cap 05/18/17 Unknown Rx Aspirin [Aspirin BABY CHEW TAB] 81 mg PO QDAY #30 tab.chew 12/18/18 Unknown Rx AtorvaSTATin [Lipitor] 80 mg PO QHS #30 tablet 12/18/18 Unknown Rx Clopidogrel [Plavix] 75 mg PO QDAY #30 tablet 12/18/18 Unknown Rx HYDROcodone/APAP 5-325 [Lole[place] 1 each PO Q6H PRN #8 tablet 12/18/18 Unknown Rx 5-325 mg TAB] Losartan [Cozaar] 25 mg PO QDAY #30 tablet 12/18/18 Unknown Rx Zolpidem [Ambien] 5 mg PO QHS PRN #30 tablet 12/18/18 Unknown Rx Multivitamin with Folic Acid [[facility]vs 400 mcg PO QDAY #30 tablet 04/11/20 Unknown Rx One Daily Essential Tablet] chlordiazePOXIDE [Librium] 25 mg PO Q6H PRN #25 capsule 04/11/20 Unknown Rx Allergies Allergy/AdvReac Type Severity Reaction Status Date / Time No Known Allergies Allergy Verified 12/16/18 17:26 ED Review of Systems ROS: Stated complaint: CHEST PAIN Other details as noted in HPI Constitutional: denies: fever Eyes: denies: vision change ENT: denies: epistaxis, congestion Respiratory: denies: cough, shortness of breath Cardiovascular: chest pain Gastrointestinal: denies: abdominal pain, hematemesis, melena, hematochezia Genitourinary: denies: dysuria Musculoskeletal: denies: myalgia Psychiatric: denies: homicidal thoughts, suicidal thoughts Hematological/Lymphatic: denies: easy bleeding ED Past Medical Hx - Past Medical History Hx Heart Attack/AMI: Yes Hx Congestive Heart Failure: No Hx Diabetes: No Hx Asthma: No Hx COPD: No - Surgical History Hx Coronary Stent: Yes - Social History Smoking Status: Never Smoker Substance Use Type: Alcohol - Medications Home Medications: Home Medications Medication Instructions Recorded Confirmed Last Taken Type Amoxicillin/K Clav Tab [Augmentin 1 tab PO Q12HR #20 tab 03/25/17 12/17/18 Unknown Rx 875MG TAB] Ibuprofen [Motrin 800 MG tab] 800 mg PO Q8HR PRN #30 tablet 03/25/17 12/17/18 U nknown Rx Ofloxacin [Ofloxacin 0.3%] 1 drop OP Q3H #1 bottle 03/25/17 12/17/18 Unknown Rx Oxymetazoline 0.05% [Vicks Sinex] 1 spray NS BID #1 bottle 03/25/17 12/17/18 Unknown Rx Ibuprofen [Motrin 600 MG tab] 600 mg PO Q8H PRN #12 tablet 05/18/17 12/17/18 Unknown Rx cephALEXin [Keflex] 500 mg PO Q8HR #30 cap 05/18/17 12/17/18 Unknown Rx Aspirin [Aspirin BABY CHEW TAB] 81 mg PO QDAY #30 tab.chew 12/18/18 Unknown Rx AtorvaSTATin [Lipitor] 80 mg PO QHS #30 tablet 12/18/18 Unknown Rx Clopidogrel [Plavix] 75 mg PO QDAY #30 tablet 12/18/18 Unknown Rx HYDROcodone/APAP 5-325 [Loleta 1 each PO Q6H PRN #8 tablet 12/18/18 Unknown Rx 5-325 mg TAB] Losartan [Cozaar] 25 mg PO QDAY #30 tablet 12/18/18 Unknown Rx Zolpidem [Ambien] 5 mg PO QHS PRN #30 tablet 12/18/18 Unknown Rx Multivitamin with Folic Acid [[facility]vs 400 mcg PO QDAY #30 tablet 04/11/20 Unknown Rx One Daily Essential Tablet] chlordiazePOXIDE [Librium] 25 mg PO Q6H PRN #25 capsule 04/11/20 Unknown Rx ED Physical Exam - General Limitations: No Limitations General appearance: alert, in no apparent distress - Head Head exam: Present: atraumatic, normocephalic - Eye Eye exam: Present: normal appearance, EOMI. Absent: nystagmus - ENT ENT exam: Present: mucous membranes dry, normal external ear exam, other (Minimal tongue fasciculations noted) - Neck Neck exam: Present: normal inspection, full ROM. Absent: tenderness, meningismus - Respiratory Respiratory exam: Present: normal lung sounds bilaterally. Absent: respiratory distress, wheezes, rales, rhonchi, stridor, decreased breath sounds - Cardiovascular Cardiovascular Exam: Present: regular rate, normal rhythm, normal heart sounds. Absent: bradycardia, tachycardia, irregular rhythm, systolic murmur, diastolic murmur, rubs, gallop - GI/Abdominal GI/Abdominal exam: Present: soft, normal bowel sounds. Absent: distended, tenderness, guarding, rebound, rigid, pulsatile mass - Rectal Rectal exam: Present: deferred - Extremities Exam Extremities exam: Present: normal inspection, full ROM, other (2+ pulses noted in the bilateral upper and lower extremities. There is no palpable cord. negative Homans sign. Muscular compartments are soft. The pelvis is stable.). Absent: pedal edema, calf tenderness - Back Exam Back exam: Present: normal inspection, full ROM. Absent: tenderness, CVA tenderness (R), CVA tenderness (L), paraspinal tenderness, vertebral tenderness - Neurological Exam Neurological exam: Present: alert (Minimal tremors noted in the upper extremity), oriented X3, normal gait, other (No facial droop. Tongue midline. Extraocular movements intact bilaterally. Facial sensation intact to light touch in V1, V2, V3 distribution bilaterally. 5 and a 5 strength in 4 extremities. Sensation intact to light touch in 4 extremities.). Absent: motor sensory deficit - Psychiatric Psychiatric exam: Present: normal affect, normal mood. Absent: homicidal id eation, suicidal ideation - Skin Skin exam: Present: warm, dry, intact, normal color. Absent: rash ED Course Vital Signs 04/10/20 04/11/20 19:31 07:42 Temperature 98.1 F 98.1 F Pulse Rate 128 H 74 Respiratory 18 16 Rate Blood Pressure 127/99 Blood Pressure 133/77 [Left] O2 Sat by Pulse 95 97 Oximetry - Reevaluation(s) Reevaluation #1: 04/11/20 06:53 Differential diagnosis, including but not limited to: GERD, gastritis, hiatal hernia, pneumonia, alcoholic gastritis, coronary artery disease Alcohol dependence Assessment and plan: 44-year-old gentleman, who is currently afebrile with reassuring vital signs with resolved tachycardia at this time, heart rate 95 bpm on my examination, who is sleeping comfortably on his stretcher on my initial examination, with EKG unchanged x1, troponin negative x2, chest pain-free for over 12 hours. Patient endorses compliance with aspirin, Plavix and statin therapy. He states that he saw his wrapper cashier earlier on within the past month. Patient's heart score is reviewed and appreciated, however, given review of past documentation, current examination, I suspect alcoholic gastritis is likely diagnosis. The patient denies DVT, pulmonary embolism risk factors, and he is low risk by Wells criteria. His tachycardia is resolved at this time, minimal tongue fasciculations noted, however, patient is clinically sober, GCS of 15, not homicidal or suicidal, exhibits decision-making capacity, and does not meet criteria for 20 hold. I contacted his private wrapper cashier, Dr. Carlos Eduardo Kruger, and I discussed the patient's history, physical, pertinent laboratory studies, EKG findings, and ph ysical exam findings. We are both of the opinion that the patient would not benefit from hospitalization for repeat cardiac risk education. Patient will be treated for mild alcohol withdrawal, presumed alcoholic gastritis. He will also be given his aspirin and Plavix. Repeat EKG pending, repeat vital signs are pending, however, we anticipate discharge with outpatient follow-up. Tendinitis reviewed and appreciated, likely secondary to alcoholism. No need to follow-up with a primary care doctor for this, and abstain from alcohol consumption Reevaluation #2: 04/11/20 08:21 EKG unchanged x2. Tachycardia resolved. Sleeping comfortably in stretcher and in no acute distress. ED Medical Decision Making - Lab Data Result diagrams: 04/10/20 19:50 04/10/20 19:50 Vital Signs 04/10/20 19:31 Temperature 98.1 F Pulse Rate 128 H Respiratory 18 Rate Blood Pressure 127/99 O2 Sat by Pulse 95 Oximetry Lab Results 04/10/20 04/10/20 04/10/20 Range/Units 19:50 19:50 19:50 WBC 9.5 (4.5-11.0) K/mm3 RBC 4.87 (3.65-5.03) M/mm3 Hgb 14.9 (11.8-15.2) gm/dl Hct 44.5 (35.5-45.6) % MCV 91 (84-94) fl MCH 31 (28-32) pg MCHC 34 (32-34) % RDW 16.1 H (13.2-15.2) % Plt Count 266 (140-440) K/mm3 Lymph % (Auto) 31.8 (13.4-35.0) % Crosby % (Auto) 11.4 H (0.0-7.3) % Eos % (Auto) 0.3 (0.0-4.3) % Baso % (Auto) 1.1 (0.0-1.8) % Lymph # (Auto) 3.0 (1.2-5.4) K/mm3 Crosby # (Auto) 1.1 H (0.0-0.8) K/mm3 Eos # (Auto) 0.0 (0.0-0.4) K/mm3 Baso # (Auto) 0.1 (0.0-0.1) K/mm3 Seg Neutrophils % 55.4 (40.0-70.0) % Seg Neutrophils # 5.2 (1.8-7.7) K/mm3 PT 11.8 L (12.2-14.9) Sec. INR 0.85 L (0.87-1.13) APTT 27.0 (24.2-36.6) Sec. Sodium 144 (137-145) mmol/L Potassium 4.4 (3.6-5.0) mmol/L Chloride 104.9 (98-107) mmol/L Carbon Dioxide 23 (22-30) mmol/L Anion Gap 21 mmol/L BUN 7 L (9-20) mg/dL Creatinine 0.9 (0.8-1.3) mg/dL Estimated GFR > 60 ml/min BUN/Creatinine Ratio 8 % Glucose 79 (75-100) mg/dL Calcium 9.3 (8.4-10.2) mg/dL Total Bilirubin < 0.20 (0.1-1.2) mg/dL AST 59 H (5-40) units/L ALT 65 H (7-56) units/L Alkaline Phosphatase 74 (35-129) units/L Troponin T < 0.010 (0.00-0.029) ng/mL Total Protein 7.7 (6.3-8.2) g/dL Albumin 4.8 (3.9-5) g/dL Albumin/Globulin Ratio 1.7 % 04/10/ Range/Units 23:07 WBC (4.5-11.0) K/mm3 RBC (3.65-5.03) M/mm3 Hgb (11.8-15.2) gm/dl Hct (35.5-45.6) % MCV (84-94) fl MCH (28-32) pg MCHC (32-34) % RDW (13.2-15.2) % Plt Count (140-440) K/mm3 Lymph % (Auto) (13.4-35.0) % Crosby % (Auto) (0.0-7.3) % Eos % (Auto) (0.0-4.3) % Baso % (Auto) (0.0-1.8) % Lymph # (Auto) (1.2-5.4) K/mm3 Crosby # (Auto) (0.0-0.8) K/mm3 Eos # (Auto) (0.0-0.4) K/mm3 Baso # (Auto) (0.0-0.1) K/mm3 Seg Neutrophils % (40.0-70.0) % Seg Neutrophils # (1.8-7.7) K/mm3 PT (12.2-14.9) Sec. INR (0.87-1.13) APTT (24.2-36.6) Sec. Sodium (137-145) mmol/L Potassium (3.6-5.0) mmol/L Chloride (98-107) mmol/L Carbon Dioxide (22-30) mmol/L Anion Gap mmol/L BUN (9-20) mg/dL Creatinine (0.8-1.3) mg/dL Estimated GFR ml/min BUN/Creatinine Ratio % Glucose (75-100) mg/dL Calcium (8.4-10.2) mg/dL Total Bilirubin (0.1-1.2) mg/dL AST (5-40) units/L ALT (7-56) units/L Alkaline Phosphatase (35-129) units/L Troponin T < 0.010 (0.00-0.029) ng/mL Total Protein (6.3-8.2) g/dL Albumin (3.9-5) g/dL Albumin/Globulin Ratio % - EKG Data -: EKG Interpreted by Me EKG shows normal: sinus rhythm Rate: normal - EKG Data Interpretation: unchanged when compared t 04/11/20 06:52 EKG #1 shows sinus rhythm, tachycardia, 114 bpm, normal axis, QTC is prolonged, there is high left ventricular voltage, the EKG is not a STEMI. The EKG today appears to be unchanged from prior EKG from August 2019 - Radiology Data Radiology results: pending, report reviewed, image reviewed X-ray of the chest is negative for acute findings Critical care attestation.: If time is entered above; I have spent that time in minutes in the direct care of this critically ill patient, excluding procedure time. ED Disposition Clinical Impression: History of chest pain, Transaminitis Disposition: TO HOME OR SELFCARE Is pt being admited?: No Does the pt Need Aspirin: No Condition: Stable Additional Instructions: Please continue current outpatient medications; discontinue consumption of Motrin, ibuprofen, Naprosyn, Aleve. Follow-up with your wrapper cashier within the next 3 to 5 days. Take the multivitamin supplementation as directed, and Librium medication as needed and directed. Librium is prescribed for alcohol withdrawal symptoms. Symptoms of alcohol withdrawal, include tremors, anxiety, heart racing, tongue fasciculations, take as needed. Strongly recommend that patient discontinue alcohol consumption. We do recommend that the patient follow-up with a primary care doctor within the next month for nonspecific minor elevation of the liver function tests. Eat plenty of fiber, vegetables, and lean protein, minimize consumption of heavy, spicy, fatty foods, and processed foods. Please return to the emergency room right away with new pain, worsened pain, migration of pain, projectile vomiting, change in mental status, confusion, inability to tolerate liquid feeds, new, worsened or different symptoms not present on the initial emergency room evaluation. Prescriptions: Multivitamin with Folic Acid [[facility]vs One Daily Essential Tablet] 400 mcg PO QDAY #30 tablet chlordiazePOXIDE [Librium] 25 mg PO Q6H PRN #25 capsule PRN Reason: Alcohol Withdrawal Referrals: CORINE KRUGER MD [Staff Physician] - 3-5 Days ROHIT LEONG MD [Staff Physician] - 3-5 Days Forms: Work/School Release Form(ED)
[2020-04-11] MEDS ORDERED: CLOPIDOGREL 75 MG TAB PO STA (06:55)
[2020-04-11] MEDS ORDERED: ASPIRIN 81 MG TAB CHEW PO STA (06:55)
[2020-04-11 09:35] VITALS: BP 112/62
== END 2020-04-11 09:35 | disposition home or self-care (01) ==
LOC: ED 19:22
DX: R07.89 Other chest pain (principal); R74.01 Elevation of levels of liver transaminase levels; I25.2 Old myocardial infarction; Z98.890 Other specified postprocedural states; Z79.1 Long term (current) use of non-steroidal anti-inflammatories (NSAID); Z79.2 Long term (current) use of antibiotics; Z79.899 Other long term (current) drug therapy
CPT/HCPCS: 36415; 71046; 80053; 84484; 85025; 85610; 85730; 93005; 99284; A9270